=== PATIENT | female | born 1945 | race Caucasian/White ===

== ENCOUNTER → 2017-02-15 | Outpatient (CLI) | payer OTHER, MEDICARE | LOC: BHFA 13:15 | PROVIDERS: ATTEND Internal Medicine Interventional Cardiology | DX: I25.10 Atherosclerotic heart disease of native coronary artery without angina pectoris (principal); I10 Essential (primary) hypertension ==

== ENCOUNTER 2017-07-07 14:49 | Emergency (ER) | payer OTHER, MEDICARE ==
[2017-07-07 14:58] VITALS: RESP 18; O2SAT 92
--- NOTE | 2017-07-07 15:41 | EDPHY ---
HPI/HX/ROS/PE/MDM Narrative: CHIEF COMPLAINT: abdominal pain HISTORY OF PRESENT ILLNESS: This patient is a 71 year old female complaining of abdominal pain onset around one month ago. For the first two weeks this was intermittent, but has been constant for the last two weeks. She takes medicine for GERD, and her pain does not feel similar to this. Her current discomfort is primarily in her lower abdomen. She has been vomiting after solid food intake, but has been able to keep down liquids. She cannot identify any provocation other than food. Her daughter at bedside notes she was dizzy and pale following walking on the treadmill this morning. She visited her primary care physician today, who recommended she present to the emergency department for further evaluation. She has had problems with constipation and diarrhea in the past. No fever, chills, chest pain, shortness of breath, palpitations, diarrhea, urinary complaints, headache, lightheadedness. REVIEW OF SYSTEMS: Aside from elements discussed in the HPI, a comprehensive 10-point review of systems was reviewed and is negative. PAST MEDICAL HISTORY: 1. Open heart surgery. 2. GERD. 3. Diabetes. 4. Hypertension. 5. Anxiety 6. Cholecystectomy 7. Appendectomy SOCIAL HISTORY: Daughter at bedside. Lives in [place]. PCP. Dr. Martinez. VITAL SIGNS: Reviewed by me GENERAL: Well-developed, well-nourished, resting comfortably in no respiratory distress. HEENT: Atraumatic. Eyes: No icterus, no injection. Mouth: moist mucous membranes. No erythema or lesions. Neck: supple with no adenopathy. LUNGS: Clear to auscultation bilaterally, no wheezes, rhonchi or rales. CARDIAC: Regular rate and rhythm, no rubs, murmurs or gallops. ABDOMEN: Generalized abdominal tenderness, worse in the lower quadrants. Distended. No guarding or rebound. Soft, bowel sounds normal. BACK: No CVA tenderness. EXTREMITIES: No trauma. No edema. Range of motion is normal throughout. NEURO: Alert and oriented, grossly nonfocal. SKIN: Warm and dry, no rash. PSYCHIATRIC: Normal mentation, no agitation. Portions of this note were transcribed by a medical records analyst. I personally performed a history, physical exam, medical decision making, and confirmed accuracy of information the transcribed note. ED Course: 71 year old female presents with 1 month history of worsening abdominal pain, constant over the last two weeks with associated vomiting. IV established. Labs including CBC, BMP, liver, lipase, UA. Plan for CT abdomen/pelvis. Administered 0.5mg IV Dilaudid and 1L IV NS for symptom relief. 17:[address] Simeon, radiologist. CT negative for acute processes. 18:17 Reassessed patient. She now tells me that she has had multiple episodes of diarrhea over the last week. Plan to order stool kit which she can complete at home. Plan to discharge home in good condition with prescription for Bentyl and Zofran for symptom relief. She understands she needs to follow up with her primary care physician tomorrow or Tuesday without fail. Return precautions discussed. She is comfortable with this plan. MDM: After obtaining the patient's history and performing an examination, differential diagnosis considered included but was not limited to appendicitis, cholecystitis, gastritis, pancreatitis, kidney stones, urinary tract infections and other causes. - Data Points Imaging Results: Impression: 1. No acute findings in the abdomen or pelvis. 2. Stable splenomegaly. 3. Minimal progression of interstitial lung disease which could represent NSIP or UIP. 4. Mild colonic diverticulosis without evidence of diverticulitis. 5. Additional findings as above. Findings discussed with Cynthia Guallpa MD, 07/07/2017 at 17:34. Dictated By: Memo Simeon MD Imaging: Discussed imaging studies w/ faculty i on call medical assistant Radiologist Laboratory Results: Laboratory Results 07/07/17 15:20 07/07/17 15:20 Medications Given: Discontinued Medications Hydrocodone Bitart/Acetaminophen ([place] 5/325mg Prepack#6) 1 btl TAKEHOME EDNOW ONE Stop: 07/07/17 18:19 Last Admin: 07/07/17 18:41 Dose: 1 btl Dicyclomine HCl (Bentyl) 20 mg PO EDNOW ONE Stop: 07/07/17 17:49 Last Admin: 07/07/17 18:09 Dose: 20 mg Hydromorphone HCl (Dilaudid) 0.5 mg IVP EDNOW ONE Stop: 07/07/17 15:59 Last Admin: 07/07/17 16:05 Dose: 0.5 mg Sodium Chloride (Ns) 1,000 mls @ 0 mls/hr IV EDNOW ONE; Wide Open PRN Reason: Protocol Stop: 07/07/17 15:59 Last Admin: 07/07/17 16:05 Dose: 1,000 mls General Time Seen by Provider: 07/07/17 15:35 Initial Vital Signs: Initial Vital Signs Temperature (C) 36.5 C 07/07/17 14:50 Heart Rate 77 07/07/17 14:50 Respiratory Rate 18 07/07/17 14:50 Blood Pressure 147/60 H 07/07/17 14:50 O2 Sat (%) 92 07/07/17 14:50 O2 Delivery Mode Room Air Allergies/Adverse Reactions: No Known Allergies Allergy (Verified 07/07/17 14:58) Home Medications: Medication Instructions Recorded Clopidogrel Bisulfate [Plavix (*)] 75 mg PO DAILY 07/19/15 LORazepam [Ativan (*)] 1 mg PO HS 07/19/15 Levothyroxine [Synthroid 100 mcg 100 mcg PO HS 07/19/15 (*)] metFORMIN HCL [Glucophage 500 mg 500 mg PO BID 07/19/15 (*)] Ergocalciferol (Vitamin D2) 50,000 unit PO SUWE@04/05/16 [Vitamin D2] Glimepiride 4 mg PO BID@08,13 04/05/16 Insulin Glargine [Lantus 100 25 unit SC BID 04/05/16 UNITS/ML (*)] Losartan Potassium [Cozaar 50 mg 50 mg PO DAILY 04/05/16 (*)] Metoprolol Tartrate 25 mg PO BID 04/05/16 HYDROmorphone HCL [Dilaudid 2 mg 2 - 4 mg PO Q4 PRN #30 tab 04/06/16 (*)] Ondansetron Odt [Zofran Odt 4 mg 4 mg PO Q6 PRN #8 tab 07/07/17 (*)] Aspirin EC [Aspirin EC 81 mg (*)] 81 mg PO HS 07/14/17 FLUoxetine HCL [Fluoxetine HCl] 40 mg PO DAILY 07/14/17 Amitriptyline HCl [Elavil 10 mg 10 mg PO HS #30 tab 07/15/17 (*)] Bismuth Subsalicylate 262 mg PO QID PRN tab.chew 07/15/17 [Pepto-Bismol (*)] Hyoscyamine Sulfate [Levsin, 0.125 mg PO Q8 PRN #60 tab 07/15/17 Hyomax-Sl 0.125 mg (*)] Pantoprazole Sodium [Protonix 40mg 40 mg PO DAILY #30 tab 07/15/17 (*)] Departure - Departure Disposition: Home, Routine, Self-Care Clinical Impression: Nausea Abdominal pain Qualifiers: Abdominal location: lower abdomen, unspecified Qualified Code(s): R10.30 - Lower abdominal pain, unspecified Condition: Good Instructions: Dicyclomine (By mouth), Abdominal Pain (ED) Additional Instructions: There is no sign of obstruction, diverticulitis, or significant bowel infection on your CT scan. If you have ongoing diarrhea, you may provide a stool sample to Dr. Martinez's office or bring it to the lab at the hospital. There are orders for stool studies in the computer. Please take Zofran as needed for ongoing nausea. Please begin taking Bentyl on a regular basis for abdominal discomfort. For your abdominal pain, I suggested you start with a bland diet and advance as tolerated. This means start with clear liquids such as water, Gatorade, juice, flat non- caffeinated soda. If you tolerate clear liquids, then you may add bland foods such as bananas, rice, or toast. If you do not have any worsening of your symptoms, you may begin to resume a regular diet. Follow up with Dr. Martinez on Tuesday or Tuesday without fail. For severe abdominal pain, please take hydrocodone. For [id number] pain, please use Tylenol 650-1000 mg every 6 hours. Referrals: Nicolas Martinez MD [Primary Care Provider] - As per Instructions Prescriptions: Ondansetron Odt [Zofran Odt 4 mg (*)] 4 mg PO Q6 PRN #8 tab PRN Reason: Nausea Report Scribed for: Cynthia Guallpa Report Scribed by: Janet Uribe Date of Report: 07/07/17 Time of Report: 16:45
[2017-07-07 15:47] LABS: % IMMATURE GRANULYOCYTES 0.2 % (0.0-1.1); ABSOLUTE IMMATURE GRANULOCYTES 0.01 10^3/uL (0.00-0.10); ADD DIFF? NO; ADD MORPH? NO; ADD SCAN? NO; ATYPICAL LYMPHOCYTE FLAG 0 (0-99); FRAGMENT RBC FLAG 30 (0-99); HEMOGLOBIN 12.9 g/dL (12.6-16.3); LEFT SHIFT FLG 0 (0-99); LIPEMIA HEMOLYSIS FLAG 80 (0-99); MEAN CELL HEMOGLOBIN 28.2 pg (27.9-34.1); MEAN CELL HEMOGLOBIN CONCENTR. 33.1 g/dL (32.4-36.7); MEAN CELL VOLUME 85.3 fL (81.5-99.8); MEAN PLATELET VOLUME 11.1 fL (8.7-11.7); PLATELET CLUMPS FLAG 20 (0-99); PLATELET COUNT 108 10^3/uL (150-400); RED BLOOD CELL COUNT 4.57 10^6/uL (4.18-5.33); RED CELL DISTRIBUTION WIDTH 15.9 % (11.5-15.2)
[2017-07-07 15:58] LABS: POTASSIUM 4.9 mEq/L (3.5-5.2)
[2017-07-07] MEDS ORDERED: NS 1,000 ML IV ONE (15:58)
[2017-07-07] MEDS ORDERED: HYDROmorphONE/DILAUDID 1 MG/ML INJ IVP ONE (15:58)
[2017-07-07 15:59] LABS: ANION GAP 18 mEq/L (8-16); CALCIUM 9.4 mg/dL (8.5-10.4); CARBON DIOXIDE 19 mEq/l (22-31); CHLORIDE 103 mEq/L (97-110); CREATININE 0.9 mg/dL (0.6-1.0); GLOMERULAR FILTRATION RATE > 60; GLUCOSE 146 mg/dL (70-100); SODIUM 140 mEq/L (134-144)
[2017-07-07 16:38] LABS: ALBUMIN 4.1 g/dL (3.5-5.0); BILIRUBIN,TOTAL 0.6 mg/dL (0.1-1.4); BILIRUBIN-CONJUGATED 0.2 mg/dL (0.0-0.5); BILIRUBIN-UNCONJUGATED 0.4 mg/dL (0.0-1.1); TOTAL PROTEIN 7.6 g/dL (6.3-8.2)
[2017-07-07] MEDS ORDERED: IOPAMIDOL (ISOVUE-300) 100 ML BTL ONE (16:44)
[2017-07-07 16:55] LABS: COLOR YELLOW; LEUKOCYTE ESTERASE,URINE TRACE (NEGATIVE); MUCUS TRACE /lpf (NONE-1+); NITRITE,URINE NEGATIVE (NEGATIVE); RBC,URINE 15-25 /hpf (0-3)
[2017-07-07] MEDS ORDERED: DICYCLOMINE 10 MG CAP PO ONE (17:48)
[2017-07-07] MEDS ORDERED: HYDROCOD/APAP 5/325 PREPACK#6 BTL TAKEHOME ONE (18:18)
[2017-07-07 18:43] VITALS: BP 153/81; PULSE 78; TEMP 98.1
== END 2017-07-07 18:30 | disposition home or self-care (01) ==
DX: R10.30 Lower abdominal pain, unspecified (principal); R11.0 Nausea; E11.9 Type 2 diabetes mellitus without complications; I10 Essential (primary) hypertension; E86.9 Volume depletion, unspecified; Z79.4 Long term (current) use of insulin; Z79.82 Long term (current) use of aspirin; Z79.84 Long term (current) use of oral hypoglycemic drugs; Z90.49 Acquired absence of other specified parts of digestive tract
CPT/HCPCS: 74177; 96361; 96374; 99285; J1170; Q9967

== ENCOUNTER 2017-07-14 13:42 | Observation (INO) | payer OTHER, MEDICARE ==
--- NOTE | 2017-07-14 16:02 | EDPHY ---
H & P Stated Complaint: Continued lower abdo pain, N/V/D, seen here . Time Seen by Provider: 07/14/17 15:43 HPI/ROS: CHIEF COMPLAINT: Lower abdominal pain HISTORY OF PRESENT ILLNESS: The patient is a 71 y/o female with a history of diabetes arriving with her family returning to the ED with lower abdominal pain that began three weeks ago. Her pain was initially intermittent, but became constant last week. She was evaluated here one week ago for the same pain and had a normal CT at that time. She describes her pain as throbbing pain that is aggravated by eating. She has been vomiting every time she eats or drinks, but also feels bloated. She describes alternating constipation and diarrhea and feels shaky when she walks. No fever, dysuria, hematuria. She has had this pain in past, but is unable to tell me more about those instances. REVIEW OF SYSTEMS: Constitutional: No fever, no chills Eyes: No visual changes ENT: No sore throat Respiratory: No cough, no shortness of breath Cardiac: No chest pain Gastrointestinal: +nausea, +vomiting, +abdominal pain Genitourinary: No hematuria, no dysuria Musculoskeletal: No leg pain or swelling Skin: No rash Neurological: No headache, no numbness, no weakness Psychiatric: No depression - Personal History Current Tetanus Diphtheria and Acellular Pertussis (TDAP): Yes Tetanus Vaccine Date: 2006 - Medical/Surgical History PMH: PMH includes: 1. Diabetes 2. GERD 3. CABG x3 4. Hypertension 5. Diverticulosis without diverticulitis 6. Cholecystectomy and appendectomy 7. Anxiety Prior medical records reviewed including ED visit 07/07/17 for abdominal pain. Hx Asthma: Yes Hx Chronic Respiratory Disease: No Hx Diabetes: Yes Hx Cardiac Disease: Yes Hx Renal Disease: No Hx Cirrhosis: No Hx Alcoholism: No Hx HIV/AIDS: No Hx Splenectomy or Spleen Trauma: No Other PMH: chronic pain. Heart surgery 2012. Appendectomy. Cholecystectomy. DM2. Asthma - Social History Smoking Status: Never smoked Additional Social History: Family at bedside. Nonsmoker. Lives in [place]. PCP: Dr. Martinez - Physical Exam Exam: General Appearance: Alert, pleasant Eyes: Pupils equal and round, no conjunctival pallor or injection ENT, Mouth: Mucous membranes dry Neck: Normal inspection Respiratory: Lungs are clear to auscultation Cardiovascular: Regular rate and rhythm Gastrointestinal: Abdomen is soft with epigastric tenderness Neurological: A&O, nonfocal, normal gait Skin: Warm and dry, no rash Extremities: Nontender, no pedal edema Psychiatric: Mood and affect normal Constitutional: Initial Vital Signs Temperature (C) 36.3 C 07/14/17 13:43 Heart Rate 71 07/14/17 13:43 Respiratory Rate 16 07/14/17 13:43 Blood Pressure 158/65 H 07/14/17 13:43 O2 Sat (%) 91 L 07/14/17 13:43 O2 Delivery Mode Room Air Allergies/Adverse Reactions: No Known Allergies Allergy (Verified 07/07/17 14:58) Home Medications: Medication Instructions Recorded Clopidogrel Bisulfate [Plavix (*)] 75 mg PO DAILY 07/19/15 Esomeprazole Magnesium [Nexium] 20 mg PO HS 07/19/15 LORazepam [Ativan (*)] 1 mg PO HS 07/19/15 Levothyroxine [Synthroid 100 mcg 100 mcg PO HS 07/19/15 (*)] metFORMIN HCL [Glucophage 500 mg 500 mg PO BID 07/19/15 (*)] Ergocalciferol (Vitamin D2) 50,000 unit PO SUWE@04/05/16 [Vitamin D2] Glimepiride 4 mg PO BID@04/05/16 Insulin Glargine [Lantus 100 25 unit SC BID 04/05/16 UNITS/ML (*)] Losartan Potassium [Cozaar 50 mg 50 mg PO DAILY 04/05/16 (*)] Metoprolol Tartrate 25 mg PO BID 04/05/16 HYDROmorphone HCL [Dilaudid 2 mg 2 - 4 mg PO Q4 PRN #30 tab 04/06/16 (*)] Ondansetron Odt [Zofran Odt 4 mg 4 mg PO Q6 PRN #8 tab 07/07/17 (RX)] Aspirin EC [Aspirin EC 81 mg (*)] 81 mg PO HS 07/14/17 FLUoxetine HCL [Fluoxetine HCl] 40 mg PO DAILY 07/14/17 Medical Decision Making ED Course/Re-evaluation: This is a 71 y/o female who returns with a few-week history of worsening abdominal pain. She has been unable to keep down food or fluids due to vomiting. She has epigastric tenderness and appears dehydrated on exam. Her CT last week did not reveal an obvious cause for her symptoms. We discussed utility of repeating imaging today and will not proceed with another CT at this time as she likely needs and endoscopy to better evaluate her pain. Concern for gastric outlet obstruction vs gastroparesis. I recommended admission for both pain control and rehydration, which she agrees to. Plan for IV, labs, and symptom management here in the ED. 1L IV NS, 4mg IV Zofran, and 40mg IV Protonix administered. Exam remains unchanged throughout. Hospitalist service was consulted for admission. Morphine IV given for pain control. Differential Diagnosis: Differential diagnosis includes though it is not limited to appendicitis, cholecystitis, diverticulitis, pyelonephritis, bowel perforation, small bowel obstruction. - Data Points Laboratory Results: Laboratory Results 07/14/17 16:15 07/14/17 16:15 07/14/17 07/14/17 07/14/17 17:10 16:15 16:15 WBC 4.31 10^3/uL 10^3/uL (3.80-9.50) RBC 4.71 10^6/uL 10^6/uL (4.18-5.33) Hgb 13.4 g/dL g/dL (12.6-16.3) Hct 39.9 % % (38.0-47.0) MCV 84.7 fL fL (81.5-99.8) MCH 28.5 pg pg (27.9-34.1) MCHC 33.6 g/dL g/dL (32.4-36.7) RDW 16.0 % H % (11.5-15.2) Plt Count 116 10^3/uL L 10^3/uL (150-400) MPV 11.2 fL fL (8.7-11.7) Neut % (Auto) 70.1 % % (39.3-74.2) Lymph % (Auto) 19.5 % % (15.0-45.0) Morgan % (Auto) 8.1 % % (4.5-13.0) Eos % (Auto) 1.6 % % (0.6-7.6) Baso % (Auto) 0.5 % % (0.3-1.7) Nucleat RBC Rel Count 0.0 % % (0.0-0.2) Absolute Neuts (auto) 3.02 10^3/uL 10^3/uL (1.70-6.50) Absolute Lymphs (auto) 0.84 10^3/uL L 10^3/uL (1.00-3.00) Absolute Monos (auto) 0.35 10^3/uL 10^3/uL (0.30-0.80) Absolute Eos (auto) 0.07 10^3/uL 10^3/uL (0.03-0.40) Absolute Basos (auto) 0.02 10^3/uL 10^3/uL (0.02-0.10) Absolute Nucleated RBC 0.00 10^3/uL 10^3/uL (0-0.01) Immature Gran % 0.2 % % (0.0-1.1) Immature Gran # 0.01 10^3/uL 10^3/uL (0.00-0.10) Sodium 139 mEq/L mEq/L (134-144) Potassium 4.5 mEq/L mEq/L (3.5-5.2) Chloride 101 mEq/L mEq/L (97-110) Carbon Dioxide 22 mEq/l mEq/l (22-31) Anion Gap 16 mEq/L mEq/L (8-16) BUN 16 mg/dL mg/dL (7-23) Creatinine 0.7 mg/dL mg/dL (0.6-1.0) Estimated GFR > 60 Glucose 189 mg/dL H mg/dL (70-100) Calcium 9.8 mg/dL mg/dL (8.5-10.4) Total Bilirubin 0.4 mg/dL mg/dL (0.1-1.4) Conjugated Bilirubin 0.1 mg/dL mg/dL (0.0-0.5) Unconjugated Bilirubin 0.3 mg/dL mg/dL (0.0-1.1) AST 57 IU/L H IU/L (14-46) ALT 66 IU/L H IU/L (9-52) Alkaline Phosphatase 71 IU/L IU/L (38-126) Total Protein 7.6 g/dL g/dL (6.3-8.2) Albumin 4.4 g/dL g/dL (3.5-5.0) Lipase 60 IU/L IU/L (23-300) Urine Color YELLOW Urine Appearance CLEAR Urine pH 5.0 (5.0-7.5) Ur Specific Wright 1.015 (1.002-1.030) Urine Protein NEGATIVE (NEGATIVE) Urine Ketones NEGATIVE (NEGATIVE) Urine Blood NEGATIVE (NEGATIVE) Urine Nitrate NEGATIVE (NEGATIVE) Urine Bilirubin NEGATIVE (NEGATIVE) Urine Urobilinogen NEGATIVE EU EU (0.2-1.0) Ur Leukocyte Esterase NEGATIVE (NEGATIVE) Urine RBC 5-10 /hpf H /hpf (0-3) Urine WBC 1-3 /hpf /hpf (0-3) Ur Epithelial Cells TRACE /lpf /lpf (NONE-1+) Urine Bacteria 4+ /hpf H /hpf (NONE SEEN) Hyaline Casts 1-5 /lpf /lpf (0-1) Urine Mucus TRACE /lpf /lpf (NONE-1+) Urine Glucose 1+ H (NEGATIVE) Medications Given: Aspirin Buffered (Aspirin Ec) 81 mg PO HS [facility] Stop: 01/10/18 20:59 Last Admin: 07/14/17 21:34 Dose: 81 mg Hydromorphone/Sodium Chloride (Hydromorphone) 0.2 - 0.4 mg IVP Q4HRS PRN PRN Reason: Pain, Severe Unable to Take PO Stop: 07/24/17 18:35 Last Admin: 07/14/17 18:56 Dose: 0.4 mg Sodium Chloride (Ns) 1,000 mls @ 75 mls/hr IV CONT ADALGISA Stop: 01/10/18 17:44 Last Admin: 07/14/17 18:41 Dose: 1,000 mls Insulin Glargine (Lantus Syringe) 12.5 units SC BID ADALGISA Stop: 01/10/18 20:59 Last Admin: 07/14/17 21:57 Dose: 12.5 units Levothyroxine Sodium (Synthroid) 100 mcg PO HS ADALGISA Stop: 01/10/18 20:59 Last Admin: 07/14/17 21:31 Dose: 100 mcg Lorazepam (Ativan) 1 mg PO HS ADALGISA Stop: 01/10/18 20:59 Last Admin: 07/14/17 21:31 Dose: 1 mg Metoprolol Tartrate (Lopressor) 25 mg PO BID ADALGISA Stop: 01/10/18 20:59 Last Admin: 07/14/17 21:40 Dose: 25 mg Pantoprazole Sodium (Protonix) 40 mg IVP BID ADALGISA Stop: 01/10/18 20:59 Last Admin: 07/14/17 21:31 Dose: 40 mg Discontinued Medications Sodium Chloride (Ns) 1,000 mls @ 0 mls/hr IV EDNOW ONE; Wide Open PRN Reason: Protocol Stop: 07/14/17 16:05 Last Admin: 07/14/17 16:17 Dose: 1,000 mls Ondansetron HCl (Zofran) 4 mg IVP EDNOW ONE Stop: 07/14/17 16:05 Last Admin: 07/14/17 16:17 Dose: 4 mg Pantoprazole Sodium (Protonix) 40 mg IVP EDNOW ONE Stop: 07/14/17 16:06 Last Admin: 07/14/17 16:18 Dose: 40 mg Departure - Departure Disposition: [facility] Inpatient Acute Clinical Impression: Dehydration, Intractable abdominal pain Condition: Fair Report Scribed for: Ronda Johnson Report Scribed by: Isela Bray Date of Report: 07/14/17 Time of Report: 16:02 Physician Review and Approval Statement: 07/14/17 16:02 Portions of this note were transcribed by a director of graduate medical education. I personally performed a history, physical exam, medical decision making, and confirmed accuracy of information the transcribed note.
[2017-07-14] MEDS ORDERED: ONDANSETRON 4 MG/2 ML VIAL IVP ONE (16:04)
[2017-07-14] MEDS ORDERED: NS 1,000 ML IV ONE (16:04)
[2017-07-14] MEDS ORDERED: PANTOPRAZOLE SODIUM 40 MG VIAL IVP ONE (16:05)
[2017-07-14 16:36] LABS: % IMMATURE GRANULYOCYTES 0.2 % (0.0-1.1); ABSOLUTE IMMATURE GRANULOCYTES 0.01 10^3/uL (0.00-0.10); ADD DIFF? NO; ADD MORPH? NO; ADD SCAN? NO; ATYPICAL LYMPHOCYTE FLAG 0 (0-99); FRAGMENT RBC FLAG 0 (0-99); HEMATOCRIT 39.9 % (38.0-47.0); HEMOGLOBIN 13.4 g/dL (12.6-16.3); LEFT SHIFT FLG 0 (0-99); LIPEMIA HEMOLYSIS FLAG 80 (0-99); MEAN CELL HEMOGLOBIN 28.5 pg (27.9-34.1); MEAN CELL HEMOGLOBIN CONCENTR. 33.6 g/dL (32.4-36.7); MEAN CELL VOLUME 84.7 fL (81.5-99.8); MEAN PLATELET VOLUME 11.2 fL (8.7-11.7); PLATELET CLUMPS FLAG 0 (0-99); PLATELET COUNT 116 10^3/uL (150-400); RED BLOOD CELL COUNT 4.71 10^6/uL (4.18-5.33)
[2017-07-14 16:51] LABS: ALANINE AMINOTRANSFERASE 66 IU/L (9-52); ALBUMIN 4.4 g/dL (3.5-5.0); ALKALINE PHOSPHATASE 71 IU/L (38-126); ANION GAP 16 mEq/L (8-16); ASPARTATE AMINOTRANSFERASE 57 IU/L (14-46); BILIRUBIN,TOTAL 0.4 mg/dL (0.1-1.4); BILIRUBIN-CONJUGATED 0.1 mg/dL (0.0-0.5); BILIRUBIN-UNCONJUGATED 0.3 mg/dL (0.0-1.1); CALCIUM 9.8 mg/dL (8.5-10.4); CARBON DIOXIDE 22 mEq/l (22-31); CHLORIDE 101 mEq/L (97-110); CREATININE 0.7 mg/dL (0.6-1.0); GLOMERULAR FILTRATION RATE > 60; GLUCOSE 189 mg/dL (70-100); POTASSIUM 4.5 mEq/L (3.5-5.2); SODIUM 139 mEq/L (134-144); TOTAL PROTEIN 7.6 g/dL (6.3-8.2)
[2017-07-14] MEDS ORDERED: ACETAMINOPHEN 325 MG TAB PO PRN (17:39)
[2017-07-14] MEDS ORDERED: ONDANSETRON DISINTEGRATING 4 MG TAB PO PRN (17:39)
[2017-07-14] MEDS ORDERED: ONDANSETRON 4 MG/2 ML VIAL IVP PRN (17:39)
[2017-07-14] MEDS ORDERED: NS 1,000 ML IV SCH (17:45)
[2017-07-14] MEDS ORDERED: D50W 25 GM/50 ML SYR IVP PRN (18:09)
[2017-07-14 18:11] LABS: COLOR YELLOW; LEUKOCYTE ESTERASE,URINE NEGATIVE (NEGATIVE); NITRITE,URINE NEGATIVE (NEGATIVE)
[2017-07-14 18:13] LABS: BACTERIA 4+ /hpf (NONE SEEN); MUCUS TRACE /lpf (NONE-1+)
[2017-07-14] MEDS ORDERED: oxyCODONE IR 5 MG TAB PO PRN (18:25)
[2017-07-14] MEDS: HYDROmorphone HCL/NS/PF 0.4 MG/2 ML SYR IVP PRN (18:56)
--- NOTE | 2017-07-14 20:58 | GHP ---
[f rep st] HISTORY AND PHYSICAL DATE OF ADMISSION: 07/14/2017 CHIEF COMPLAINT: Abdominal pain. HISTORY OF PRESENT ILLNESS: This is a 71-year-old female history of diabetes as well as coronary art jone disease, who presents with 3 weeks of abdominal pain. She describes this as a lower abdominal cr ampy-type pain. She has been having intermittent constipation as well as diarrhea during this. She does not feel significantly constipated. Pain is worse with food. She has vomited almost every emmanuel d food that she has eaten in the past 3 weeks. She is able to keep down small amounts of fluids. Arnold florian feels as though the pain does become worse almost immediately after she eats and then she vomits wi thin 10 minutes or so. She has had a cholecystectomy. She also feels as though she is bloated. She may have lost a little bit of weight. She has been diagnosed and treated for H. pylori induced ulce rs in the past. She believes that this was diagnosed with an endoscopy. She has not had one recentl y, however. She was in the emergency department one week ago for the same complaints. At that time, labs were drawn which were relatively unremarkable. She had an abdominal CT scan which showed nothi ng to explain her abdominal pain. PAST MEDICAL/SURGICAL HISTORY: 1. Coronary artery disease, status post CABG. 2. Diabetes mellitus type 2. 3. Cholecystectomy. 4. Obesity. 5. Hypertension. 6. Hyperlipidemia. 7. Hypothyroid. 8. Depression. 9. GIORGIO, on CPAP. MEDICATIONS: Please see medication reconciliation. ALLERGIES: NO KNOWN DRUG ALLERGIES. FAMILY HISTORY: Family history is reviewed and noncontributory. SOCIAL HISTORY: She is accompanied by her daughter. She has another daughter who would be her MD PO A. REVIEW OF SYSTEMS: A 10-point review of systems was conducted and was negative except for HPI. PHYSICAL EXAMINATION: VITAL SIGNS: Blood pressure 147/58, heart rate 64, respiratory rate 16, satur ating at 93% on room air, temperature 36.3. GENERAL: Ms. Butler is a very pleasant female who appe ars quite comfortable, in no acute distress. HEENT: Shows her to be normocephalic, atraumatic. CAR DIOVASCULAR: Regular rate and rhythm. There is a 1/6 faint systolic murmur. PULMONARY: Lungs jacques r bilaterally. ABDOMEN: Her abdomen is soft. She has normal bowel sounds. She has no guarding or rebound. She has diffuse tenderness to palpation. I do not appreciate any masses. SKIN: No rash. : No [place]. NEUROLOGIC: She is alert and oriented x3. She is moving all extremities. PSYCHIAT [place]: Normal mood and affect. LABORATORY DATA: Notable for platelets of 116, which is chronic. Her creatinine is 0.7. AST and AL T are chronically elevated in the 50s and 60s. Urinalysis from a week ago showed 3 to 5 whites. Uri ne culture from that time showed low colony counts of nonlactose fermenting gram angelica as well as Staph ylococcus aureus. These are likely contaminants. DATA: 1. I discussed with Dr. Johnson. 2. I reviewed her abdominal CT, most notable for minimal progression of interstitial lung disease. There were no acute abdominal findings. IMPRESSION AND PLAN: A 71-year-old female with diffuse abdominal pain. 1. Postprandial abdominal pain: Most likely represents intraluminal stomach process, consider gastr itis, other stomach ulcer, possible gastric outlet obstruction. Also consider diabetic gastroparesis . I think it is reasonable to treat her tonight with high-dose intravenous Protonix and follow her c linical course. I will go ahead and order an upper GI series for tomorrow to potentially show ulcers , gastric outlet obstruction. If she is better, this does really not need to be done and she could b e referred to see Gastroenterology as an outpatient. We could also consider an inpatient gastroenter ology consult for upper endoscopy. Will give her IV fluids overnight, clear liquids for now, and n.p .o. after midnight. She will be provided antiemetics as well. 2. Coronary artery disease, status post coronary artery bypass grafting: Currently not having any c hest pain. We will continue her cardiac medications. 3. Diabetes: Will hold her metformin for now. Will continue her home insulin and place her on a lo w-dose sliding scale with Lispro. 4. Hypothyroid: Synthroid. 5. Obstructive sleep apnea: If she stays for more than one night, her daughter will bring up her CP AP. 6. Code status: Full. 7. Venous thromboembolism risk is moderate. Since she is admitted at observation, will place her on SCDs. Consider pharmacologic prophylaxis if she stays. /[id number]/MODL
[2017-07-14] MEDS ORDERED: LORazepam 1 MG TAB PO SCH (21:00)
[2017-07-14] MEDS ORDERED: ASPIRIN EC 81 MG TAB PO SCH (21:00)
[2017-07-14] MEDS ORDERED: LEVOTHYROXINE 100 MCG TAB PO SCH (21:00)
[2017-07-14] MEDS: PANTOPRAZOLE SODIUM 40 MG VIAL IVP SCH (21:31)
[2017-07-14] MEDS: METOPROLOL TARTRATE 25 MG TAB PO SCH ×2 (21:33→21:40)
[2017-07-14] MEDS: INSULIN GLARGINE 100 UNITS/ML SYRINGE SC SCH (21:57)
[2017-07-15 05:17] LABS: % IMMATURE GRANULYOCYTES 0.3 % (0.0-1.1); ABSOLUTE IMMATURE GRANULOCYTES 0.01 10^3/uL (0.00-0.10); ADD DIFF? NO; ADD MORPH? NO; ADD SCAN? NO; ATYPICAL LYMPHOCYTE FLAG 0 (0-99); FRAGMENT RBC FLAG 0 (0-99); HEMOGLOBIN 11.7 g/dL (12.6-16.3); LEFT SHIFT FLG 0 (0-99); LIPEMIA HEMOLYSIS FLAG 80 (0-99); MEAN CELL HEMOGLOBIN CONCENTR. 32.5 g/dL (32.4-36.7); MEAN CELL VOLUME 86.1 fL (81.5-99.8); PLATELET CLUMPS FLAG 0 (0-99); PLATELET COUNT 91 10^3/uL (150-400); RED BLOOD CELL COUNT 4.18 10^6/uL (4.18-5.33); RED CELL DISTRIBUTION WIDTH 15.9 % (11.5-15.2)
[2017-07-15 05:38] LABS: ALANINE AMINOTRANSFERASE 60 IU/L (9-52); ALBUMIN 3.3 g/dL (3.5-5.0); ALKALINE PHOSPHATASE 56 IU/L (38-126); ANION GAP 14 mEq/L (8-16); ASPARTATE AMINOTRANSFERASE 53 IU/L (14-46); BILIRUBIN,TOTAL 0.5 mg/dL (0.1-1.4); CALCIUM 8.9 mg/dL (8.5-10.4); CARBON DIOXIDE 24 mEq/l (22-31); CHLORIDE 106 mEq/L (97-110); CREATININE 0.7 mg/dL (0.6-1.0); GLOMERULAR FILTRATION RATE > 60; GLUCOSE 78 mg/dL (70-100); SODIUM 144 mEq/L (134-144); TOTAL PROTEIN 6.6 g/dL (6.3-8.2)
[2017-07-15] MEDS: INSULIN LISPRO 100 UNIT/ML SC SCH ×3 (08:24→19:16)
[2017-07-15] MEDS: HYDROmorphone HCL/NS/PF 0.4 MG/2 ML SYR IVP PRN ×2 (08:37→13:13)
[2017-07-15] MEDS: PANTOPRAZOLE SODIUM 40 MG VIAL IVP SCH (08:38)
[2017-07-15] MEDS ORDERED: ENOXAPARIN 40 MG/0.4 ML SYR SC SCH (09:00)
[2017-07-15] MEDS ORDERED: LOSARTAN POTASSIUM 50 MG TAB PO SCH (09:00)
[2017-07-15] MEDS ORDERED: FLUoxetine 20 MG CAP PO SCH (09:00)
[2017-07-15] MEDS ORDERED: CLOPIDOGREL BISULFATE 75 MG TAB PO SCH (09:00)
[2017-07-15] MEDS: METOPROLOL TARTRATE 25 MG TAB PO SCH (10:40)
[2017-07-15] MEDS: INSULIN GLARGINE 100 UNITS/ML SYRINGE SC SCH (11:16)
--- NOTE | 2017-07-15 11:37 | ASMTCMCOM ---
CM Note CM Note Notes: Pt. is a 71-year-old woman in OBS status, admitted for lower abdominal pain and vomiting. Pt. was seen in ED approximately one week ago also for abdominal pain. Pt. reports has been having lower abdominal pain for 3 weeks. Pt. w/ hx. Type 2 diabetes, GERD, CABG, HTN, diverticulosis, gall bladder and appendix removal, hypothyroid, sleep apnea, obesity, asthma, depression and anxiety. PCP is Dr. Martinez. No PT or OT orders. Pt. got d/c order today. Bedside RN states Pt. good to go home independently with support of friends and family. Current plan: independent d/c today. Date Signed: 07/15/2017 11:37 AM Electronically Signed By:Brandy Schneider LCSW
[2017-07-15 13:29] VITALS: O2SAT 90
[2017-07-15 16:44] VITALS: BP 114/61; PULSE 65; RESP 18; TEMP 97.8
[2017-07-15] MEDS ORDERED: HYOSCYAMINE SULFATE 0.125 MG TAB PO PRN (17:17)
--- NOTE | 2017-07-15 17:17 | GDS ---
[f rep st] DISCHARGE SUMMARY DISCHARGE DIAGNOSES: 1. Abdominal pain. Unclear etiology. Suspect underlying irritable bowel syndrome, as well as mild gastritis. 2. Diabetes mellitus. 3. History of coronary artery disease. 4. Hypothyroidism. 5. Obstructive sleep apnea. CONSULTANTS: Dr. Luis E Segura. HOSPITAL COURSE: Abdominal pain: The patient presented to the hospital with recurrent abdominal isma n. She was seen in the Emergency Department earlier this month, at which time a CT of the abdomen wa s done that showed no acute findings. The patient tells me that she has been having abdominal pain f or years. She does have some diarrhea alternating with constipation. Her pain is worse after eating . On the day of discharge, her pain is somewhat better. Upper GI series was done on the morning of dis charge, which was technically limited because the patient did vomit the contrast. It did show some m ild gastritis without focal ulceration. Prior to discharge, I discussed the case with Dr. Segura, who is the patient's executive relations specialist. He plans to visit with her prior to her discharge later today. PHYSICAL EXAM: VITAL SIGNS: On day of discharge, blood pressure 136/66, pulse 62, respiratory rate 18, O2 saturation 94% on room air, temperature afebrile. ABDOMEN: Soft, nontender, nondistended. N o guarding or rebound tenderness. There is mild distention. LABORATORY DATA: Done on this hospital stay upper GI series on 07/15/2017, refer to report. DISCHARGE MEDICATIONS: Please refer to discharge medication reconciliation in [facility] for full deta ils. Below is a preliminary list. NEW MEDICATIONS: Protonix 40 mg daily. DISCHARGE INSTRUCTIONS: The patient will be discharged later today pending evaluation by GI. I disc ussed the differential diagnosis with the patient prior to discharge, including functional abdominal pain syndrome/irritable bowel syndrome versus gastritis versus possible diabetic gastroparesis. I re commended a trial of elimination diet of gluten. She could also try decreasing her dairy and increas ing her dietary fiber. She should follow up with GI as directed. /[id number]/MODL
[2017-07-15] MEDS ORDERED: BISMUTH SUBSALICYLATE 262 MG CHEWABLE TAB PO PRN (17:18)
--- NOTE | 2017-07-15 18:03 | GCON ---
[f rep st] CONSULTATION GI INPATIENT CONSULTATION DATE OF CONSULTATION: 07/15/2017 REASON FOR CONSULTATION: I was kindly requested to see this patient by Dr. Francisco Javier Galindo in consultation for a chief complaint of digestive symptoms. HISTORY OF PRESENT ILLNESS: She is a 71-year-old white female who has had a long history of the above. Dating back as far as 2006, she has had trouble with abdominal pain, nausea, bowel trouble, etc. For the last 2 weeks, she feels that it has been getting somewhat worse. She complains of bilateral lower quadrant crampy abdominal pain. She also can have nausea. Food can make these symptoms worse. She has some bloating. She can have trouble with diarrhea, with alternating constipation. Lately, she has had more trouble with diarrhea than the latter. She denies hematemesis, blood in her stool, fever. She has had an extensive, unremarkable workup. This includes an upper endoscopy in 2006 for similar symptoms, which was essentially normal. Biopsies for H pylori were positive, and she was treated for this with Prevpac. Duodenal biopsies were negative. Subsequently, she has had upper GI series, ultrasounds, CT scans, colonoscopies, blood work, etc., all relatively unremarkable. On July 07, she had a CT scan of the abdomen and pelvis with IV contrast, which was normal, except for some mild diverticulosis. On this admission, upper GI series showed no ulcer. For the above, she has tried dicyclomine, but she states it gave her the "shakes." She does have trouble with insomnia. PAST MEDICAL HISTORY: 1. As above. 2. Coronary artery disease with a relatively recent CABG. 3. Diabetes mellitus. 4. Status post cholecystectomy. 5. Obesity. 6. Hypertension. 7. Elevated lipids. 8. Thyroid disorder. 9. Depression. 10. Sleep apnea on CPAP. 11. Status post appendectomy. 12. Otherwise, noncontributory. ALLERGIES: No known drug allergies. OUTPATIENT MEDICATIONS: Prozac, Synthroid, metformin, Ativan, Nexium 20 mg daily, which she states helps with heartburn, Plavix, losartan, metoprolol, aspirin, Dilaudid as needed, Zofran as needed and Glimepiride. INPATIENT MEDICATIONS: IV fluids, Protonix 40 mg IV twice a day, aspirin, Plavix, Prozac, insulin, Ativan before bed, Cozaar, Synthroid and Lopressor. SOCIAL HISTORY: Negative for alcohol abuse. FAMILY HISTORY: Negative for similar digestive symptoms. REVIEW OF SYSTEMS: A complete positive review of systems as per my HPI. Otherwise, complete review of systems is negative. PHYSICAL EXAMINATION: CONSTITUTIONAL: Nontoxic-appearing, pleasant woman. VITAL SIGNS: Stable. SKIN: Warm, dry. HEENT: Eyes: Pupils equal, round, and reactive to light and accommodation. Ears, nose, mouth and throat: Oropharynx without masses, moist mucosa. GASTROINTESTINAL: Abdomen is profuse , nontender. NEUROLOGIC: Grossly nonfocal, cranial nerves grossly intact. PSYCHIATRIC: Orientation, insight appropriate. MUSCULOSKELETAL: Strength grossly normal throughout, normal station. LABORATORY DATA: Include the above. The upper GI was otherwise technically limited with some question of gastritis and some physiologic reflux versus vomiting seen. There was a known duodenal diverticulum seen. Hematocrit normal. Basic metabolic panel normal. Slightly elevated AST and ALT, similar to 2013, at 53 and 60. Normal lipase. Urinalysis negative. Elevated TSH in 2014, but she states that this was recently checked in her outpatient endocrine' s office and was unremarkable. ASSESSMENT: Bilateral lower quadrant crampy abdominal pain with nausea, bloating, diarrhea, and less frequent alternating constipation. This almost certainly represents her known irritable bowel syndrome. In support of this are her chronic symptoms, classic symptoms, and extensive past and present evaluation. Doubt a structural lesion of the upper GI tract, missed on today's upper GI series, or a structural colonic etiology. PLAN: 1. Elavil 10 mg at bedtime, for at least several months, to treat her irritable bowel syndrome with pain, nausea, and diarrhea. Then, she can stop this if she wants. 2. Hyoscyamine 1 tablet 3 times daily orally p.r.n. crampy abdominal pain, especially while waiting for the amitriptyline to "kick in.". 3. As an outpatient, would recommend increasing her Nexium to 40 mg daily long- term. 4. Kaopectate or Pepto-Bismol as needed for diarrhea. 5. We will check a stool for H pylori but suspect treatment done 10 years ago eradicated this. 6. I discussed with Anais and her family pursuing upper endoscopy and colonoscopy. They wish to hold off on this for now, which is certainly quite reasonable, as overall, relatively low yield. If, however, the above does not help over the next weeks to months, we could always consider this as an outpatient. I am going off service after today, so will sign off. As an outpatient, would recommend continuing the above. I would recommend follow up with her PCP, but I could certainly also follow up with her, if she wishes. Thank you for allowing me to help in the care of this patient. /[id number]/MODL MTDD
[2017-07-16] MEDS ORDERED: PANTOPRAZOLE SODIUM 40 MG TAB PO SCH (09:00)
--- NOTE | 2017-07-16 17:17 | ASDISCHSUM ---
Discharge Information Plan Status:Home with No Needs Medically Cleared to Leave: Discharge Date:07/15/2017 08:11 PM CM D/C Disposition:Home, Routine, Self-Care ADT D/C Disposition:Home, Routine, Self-Care Projected Discharge Date:07/15/2017 08:11 PM Transportation at D/C:Family Discharge Delay Reason: Follow-Up Date:07/15/2017 08:11 PM Discharge Slot: Final Diagnosis: Placement Information Patient Contact Information Contact Name:KIKE Relationship:Daughter Address: City: [facility] Phone: [facility]/Zip Code: Email: Financial Information Financial Class: Primary Plan Desc:MEDICARE OUTPATIENT Primary Plan Number:[id number] Secondary Plan Desc:[employer]/MDR SUPPLEMENT Secondary Plan Number:[id number] Assessment Information LACE LACE Length of stay for Answers: 1 day current admission Acuity / Level of Care Answers: Was the patient admitted to hospital via the emergency department? Yes: Comorbidities - select Answers: Peripheral vascular all that apply disease Emergency dept visits in Answers: 1 last 6 months Score: 6 Date Signed: 07/15/2017 11:15 AM Electronically Signed By:Brandy Schneider LCSW [facility] CM Progress Note CM Note CM Note Notes: Pt. is a 71-year-old woman in OBS status, admitted for lower abdominal pain and vomiting. Pt. was seen in ED approximately one week ago also for abdominal pain. Pt. reports has been having lower abdominal pain for 3 weeks. Pt. w/ hx. Type 2 diabetes, GERD, CABG, HTN, diverticulosis, gall bladder and appendix removal, hypothyroid, sleep apnea, obesity, asthma, depression and anxiety. PCP is Dr. Martinez. No PT or OT orders. Pt. got d/c order today. Bedside RN states Pt. good to go home independently with support of friends and family. Current plan: independent d/c today. Date Signed: 07/15/2017 11:37 AM Electronically Signed By:Brandy Schneider LCSW Intervention Information
[2017-07-17] MEDS ORDERED: ERGOCALCIFEROL 50,000 I.UNIT CAP PO SCH (09:00)
== END 2017-07-15 20:11 | disposition home or self-care (01) ==
LOC: F3E 18:22
PROVIDERS: ADMIT Student in an Organized Health Care Education/Training Program; ATTEND Family Medicine
DX: R10.32 Left lower quadrant pain (principal); R10.31 Right lower quadrant pain; I25.10 Atherosclerotic heart disease of native coronary artery without angina pectoris; E11.9 Type 2 diabetes mellitus without complications; K21.9 Gastro-esophageal reflux disease without esophagitis; I10 Essential (primary) hypertension; F41.9 Anxiety disorder, unspecified; E66.9 Obesity, unspecified; G47.33 Obstructive sleep apnea (adult) (pediatric); Z95.1 Presence of aortocoronary bypass graft; Z68.29 Body mass index [BMI] 29.0-29.9, adult
CPT/HCPCS: 74240; G0378; J1170; J1815; J2405; 96374

== ENCOUNTER 2018-02-07 15:24 | Emergency (ER) | payer OTHER, MEDICARE ==
--- NOTE | 2018-02-07 15:33 | CPEKG ---
Heart Rate: 55 RR Interval: 1091 QRSD Interval: 134 QT Interval: 428 QTC Interval: 410 QRS Leland: -41 T Wave Leland: 85 EKG Severity - ABNORMAL ECG - EKG Impression: ATRIAL FIBRILLATION EKG Impression: VENTRICULAR BIGEMINY EKG Impression: LEFT BUNDLE BRANCH BLOCK Electronically Signed By: Bob Herrera 07-Feb-2018 20:40:36
--- NOTE | 2018-02-07 15:37 | EDPHY ---
HPI/HX/ROS/PE/MDM Narrative: CHIEF COMPLAINT: Chest pain, shortness of breath HPI: The patient is a 72 y/o female with a history of a CABG with stents complaining of a dull chest pain and shortness of breath onset several days to a week ago. This pain is similar to prior episodes of chest pain. She also feels like her body feels more heavy while walking. The patient denies history of atrial fibrillation. Denies headache, numbness, paresthesias, abdominal pain, urinary or bowel complaints, fever. She denies pain with inspiration. No syncopal events. No fever or cough. REVIEW OF SYSTEMS: Aside from elements discussed in the HPI, a comprehensive 10-point review of systems was reviewed and is negative. PMH: CABG with stents (2011), diabetes, asthma, appendectomy, chronic pain SOCIAL HISTORY: Lives in [place], , retired PHYSICAL EXAM: General: Patient is alert, in no acute distress. ENT: Eyes are normal to inspection. ENT inspection normal. Neck: Normal inspection. Full range of motion. Respiratory: No respiratory distress. Breath sounds normal bilaterally. Cardiovascular: Regular rate and rhythm. Strong peripheral pulses. Normal cap refill. Abdomen: The abdomen is nontender to palpation. There are no peritoneal signs. There are normal bowel sounds. Back: Normal to inspection. No tenderness to palpation. Skin: Normal color. No rash. Warm and dry. Extremities: Normal appearance. Full range of motion. Neuro: Oriented x3. Normal motor function. Normal sensory function. ED Course: 1530: EKG was ordered and interpreted by myself as atrial fibrillation. Please see [employer] system for official reading. 1627: Repeat EKG was ordered and interpreted by myself as sinus rhythm. Please see [employer] system for official reading. 1709: Patient's glucose is 522. Chest CTA ordered and additional 1L IV NS administered. 1741: Reassessed patient, she reports that she has not taken her insulin today. I have offered her admission which she has declined. Patient is safe to go home pending normal chest CTA. Strict return precautions provided; patient is comfortable with this plan. 175: I spoke with radiologist who reports a normal chest CTA. Patient is safe to be discharged. 191: Reassessed patient, she is still refusing admission and she is now refusing insulin. MDM: This patient presents with chest pain and shortness of breath that has been present for almost a week. We performed an extensive workup including ECG, troponin and CTA-chest, all of which are normal. The patient has marked hyperglycemia without signs of anion gap acidosis, and she states this is because she forgot to take her insulin. I discussed options with her and informed her that although she does not appear to be having a heart attack, she has multiple comorbidities including CAD, prior CABG, IDDM that place her at significant risk for one. I offered admission to the hospital for further workup including repeat troponins and cardiology consultation but she declines. I also recommended we give her a dose of insulin and ensure that her BGL normalizes but she refuses this as well. In my professional opinion, the patient appears to understand the risks involved in this decisions and she seems competent to make her own decisions. We discussed strict return precautions and patient promises to return for any worsening of condition whatsoever. The etiology of her symptoms is currently unknown but I see no signs of ACS, PE, PNA, TAD, sepsis. - Data Points Imaging Results: Imaging Impressions Chest/Thorax CTA 02/07/18 17:04 Impression: 1. No evidence of pulmonary thromboembolic disease. Evidence of atherosclerotic disease coronary arteries and coronary stents. 2. Evidence of mild interstitial lung disease bilaterally, which has mildly progressed over the interval. 3. Multilevel degenerative change thoracic spine, particularly there is a prominent protrusion osteophyte complex at T6-T7. E:amm Imaging: Discussed imaging studies w/ mail caller Radiologist, I viewed and interpreted images myself Laboratory Results: Laboratory Results 02/07/18 15:34 02/07/18 15:34 02/07/18 02/07/18 02/07/18 15:38 15:34 15:34 WBC RBC Hgb Hct MCV MCH MCHC RDW Plt Count MPV Neut % (Auto) Lymph % (Auto) Ripley % (Auto) Eos % (Auto) Baso % (Auto) Nucleat RBC Rel Count Absolute Neuts (auto) Absolute Lymphs (auto) Absolute Monos (auto) Absolute Eos (auto) Absolute Basos (auto) Absolute Nucleated RBC Immature Gran % Immature Gran # PT 13.6 SEC SEC (12.0-15.0) INR 1.02 (0.83-1.16) APTT 27.9 SEC SEC (23.0-38.0) D-Dimer 0.55 ug/mLFEU H ug/mLFEU (0.00-0.50) Sodium 136 mEq/L mEq/L (135-145) Potassium 5.3 mEq/L H mEq/L (3.3-5.0) Chloride 101 mEq/L mEq/L (97-110) Carbon Dioxide 23 mEq/l mEq/l (22-31) Anion Gap 12 mEq/L mEq/L (8-16) BUN 18 mg/dL mg/dL (7-23) Creatinine 1.0 mg/dL mg/dL (0.6-1.0) Estimated GFR 55 Glucose 522 mg/dL H* mg/dL (70-100) Calcium 9.4 mg/dL mg/dL (8.5-10.4) POC Troponin I 0.00 ng/mL ng/mL (0.00-0.08) 02/07/18 15:34 WBC 3.76 10^3/uL L 10^3/uL (3.80-9.50) RBC 4.34 10^6/uL 10^6/uL (4.18-5.33) Hgb 12.2 g/dL L g/dL (12.6-16.3) Hct 37.5 % L % (38.0-47.0) MCV 86.4 fL fL (81.5-99.8) MCH 28.1 pg pg (27.9-34.1) MCHC 32.5 g/dL g/dL (32.4-36.7) RDW 15.5 % H % (11.5-15.2) Plt Count 93 10^3/uL L 10^3/uL (150-400) MPV 11.9 fL H fL (8.7-11.7) Neut % (Auto) 69.8 % % (39.3-74.2) Lymph % (Auto) 17.6 % % (15.0-45.0) Ripley % (Auto) 9.6 % % (4.5-13.0) Eos % (Auto) 1.9 % % (0.6-7.6) Baso % (Auto) 0.8 % % (0.3-1.7) Nucleat RBC Rel Count 0.0 % % (0.0-0.2) Absolute Neuts (auto) 2.63 10^3/uL 10^3/uL (1.70-6.50) Absolute Lymphs (auto) 0.66 10^3/uL L 10^3/uL (1.00-3.00) Absolute Monos (auto) 0.36 10^3/uL 10^3/uL (0.30-0.80) Absolute Eos (auto) 0.07 10^3/uL 10^3/uL (0.03-0.40) Absolute Basos (auto) 0.03 10^3/uL 10^3/uL (0.02-0.10) Absolute Nucleated RBC 0.00 10^3/uL 10^3/uL (0-0.01) Immature Gran % 0.3 % % (0.0-1.1) Immature Gran # 0.01 10^3/uL 10^3/uL (0.00-0.10) PT INR APTT D-Dimer Sodium Potassium Chloride Carbon Dioxide Anion Gap BUN Creatinine Estimated GFR Glucose Calcium POC Troponin I Medications Given: Discontinued Medications Sodium Chloride (Ns) 500 mls @ 0 mls/hr IV EDNOW ONE; Wide Open PRN Reason: Protocol Stop: 02/07/18 16:28 Last Admin: 02/07/18 16:43 Dose: 500 mls Sodium Chloride (Ns) 1,000 mls @ 0 mls/hr IV EDNOW ONE; Wide Open PRN Reason: Protocol Stop: 02/07/18 17:10 Last Admin: 02/07/18 17:19 Dose: 1,000 mls Point of Care Test Results: Chemistry 02/07/18 15:38 POC Troponin I 0.00 ng/mL ng/mL (0.00-0.08) General Time Seen by Provider: 02/07/18 15:36 Initial Vital Signs: Initial Vital Signs Temperature (C) 36.8 C 02/07/18 15:29 Heart Rate 72 02/07/18 15:29 Respiratory Rate 18 02/07/18 15:29 Blood Pressure 117/53 L 02/07/18 15:29 O2 Sat (%) 89 L 02/07/18 15:29 O2 Delivery Mode Room Air Allergies/Adverse Reactions: No Known Allergies Allergy (Verified 02/07/18 15:30) Home Medications: Medication Instructions Recorded Clopidogrel Bisulfate [Plavix (*)] 75 mg PO DAILY 07/19/15 LORazepam [Ativan (*)] 1 mg PO HS 07/19/15 Levothyroxine [Synthroid 100 mcg 100 mcg PO HS 07/19/15 (*)] metFORMIN HCL [Glucophage 500 mg 500 mg PO BID 07/19/15 (*)] Ergocalciferol (Vitamin D2) 50,000 unit PO SUWE@04/05/16 [Vitamin D2] Glimepiride 4 mg PO BID@,04/05/16 Insulin Glargine [Lantus 100 25 unit SC BID 04/05/16 UNITS/ML (*)] Losartan Potassium [Cozaar 50 mg 50 mg PO DAILY 04/05/16 (*)] Metoprolol Tartrate 25 mg PO BID 04/05/16 HYDROmorphone HCL [Dilaudid 2 mg 2 - 4 mg PO Q4 PRN #30 tab 04/06/16 (*)] Ondansetron Odt [Zofran Odt 4 mg 4 mg PO Q6 PRN #8 tab 07/07/17 (*)] Aspirin EC [Aspirin EC 81 mg (*)] 81 mg PO HS 07/14/17 FLUoxetine HCL [Fluoxetine HCl] 40 mg PO DAILY 07/14/17 Amitriptyline HCl [Elavil 10 mg 10 mg PO HS #30 tab 07/15/17 (*)] Bismuth Subsalicylate 262 mg PO QID PRN tab.chew 07/15/17 [Pepto-Bismol (*)] Hyoscyamine Sulfate [Levsin, 0.125 mg PO Q8 PRN #60 tab 07/15/17 Hyomax-Sl 0.125 mg (*)] Pantoprazole Sodium [Protonix 40mg 40 mg PO DAILY #30 tab 07/15/17 (*)] Departure - Departure Disposition: Home, Routine, Self-Care Clinical Impression: Hyperglycemia Chest pain Qualifiers: Chest pain type: other chest pain Qualified Code(s): R07.89 - Other chest pain Condition: Good Instructions: Chest Pain (ED), Diabetic Hyperglycemia (ED) Additional Instructions: Follow-up with your primary doctor within 72 hours. Return to the Emergency Department for fever, chest pain, shortness of breath, increasing pain or other worsening of condition. Follow up with a parts clerk plant maintenance for further testing, as soon as possible, within one week. As we discussed, it is impossible to fully rule out heart disease as the cause of your chest pain in the emergency department. We would be happy to reevaluate you and observe you in the hospital at any time. Referrals: Christian Perez MD [Medical Doctor] - As per Instructions Report Scribed for: Bob Herrera Report Scribed by: Elke Rush Date of Report: 02/07/18 Time of Report: 15:41 Physician Review and Approval Statement: Portions of this note were transcribed by an ED scribe. I personally performed the history, physical exam, and medical decision making; and confirm the accuracy of the information in the transcribed note.
[2018-02-07] MEDS ORDERED: NS 500 ML IV ONE (16:27)
--- NOTE | 2018-02-07 16:32 | CPEKG ---
Heart Rate: 92 RR Interval: 652 P-R Interval: 184 QRSD Interval: 126 QT Interval: 400 QTC Interval: 495 P Orlando: 59 QRS [place]: -44 T Wave [place]: 102 EKG Severity - ABNORMAL ECG - EKG Impression: SINUS RHYTHM EKG Impression: LVH WITH IVCD, LAD AND SECONDARY REPOL ABNRM Electronically Signed By: Bob Herrera 07-Feb-2018 20:40:17
[2018-02-07 16:36] LABS: PLATELET COUNT 93 10^3/uL (150-400)
[2018-02-07 16:44] LABS: INR 1.02 (0.83-1.16); PROTIME(PATIENT) 13.6 SEC (12.0-15.0)
[2018-02-07] MEDS ORDERED: NS 1,000 ML IV ONE (17:09)
[2018-02-07] MEDS ORDERED: IOPAMIDOL (ISOVUE 370) 100 ML BTL IV ONE (17:19)
[2018-02-07 19:18] VITALS: BP 163/80
== END 2018-02-07 19:18 | disposition home or self-care (01) ==
DX: R07.89 Other chest pain (principal); E11.65 Type 2 diabetes mellitus with hyperglycemia; I25.810 Atherosclerosis of coronary artery bypass graft(s) without angina pectoris; J45.909 Unspecified asthma, uncomplicated; E86.9 Volume depletion, unspecified; Z79.4 Long term (current) use of insulin; Z79.82 Long term (current) use of aspirin; Z79.84 Long term (current) use of oral hypoglycemic drugs
CPT/HCPCS: 71275; 93005; 96360; 96361; 99285; Q9967; 84484-PO

== ENCOUNTER 2018-03-13 16:44 | Inpatient (IN) | payer OTHER, MEDICARE ==
--- NOTE | 2018-03-13 17:05 | EDPHY ---
H & P Time Seen by Provider: 03/13/18 16:55 HPI/ROS: Chief complaint. Abdominal pain, urinary symptoms HPI. 72-year-old female presents emergency department several day history of abdominal pain. She has had burning with urination for 1 week. She has pain in her low abdomen. She says it"hurts". She is bloated. Nausea and vomiting but no diarrhea. No bowel movement for 2 days. She does have some discomfort in her low back. No chest discomfort however she does have shortness of breath. And cough. Fever to 100.2 degrees. Patient was seen about 2 weeks ago for chest discomfort and shortness of breath and was found to be in atrial fibrillation a glucose of 522. She tells me now her blood sugars have been running more in the 200s. ROS Constitutional. Fever and weakness Eyes. no problems with vision ENT. no sore throat, no nasal drainage Cardiovascular. no chest pain Respiratory. Short of breath and cough Abdominal. Bilateral low abdominal pain with nausea and vomiting. No bowel movement for 2 days . Painful urination MS. no calf pain/swelling, no neck/back pain, no joint pain Skin. no rash Lymph. no swollen glands Neuro. no headache, no dizziness, no difficulty walking or with speech Past Medical/Surgical History: Past medical history significant for chronic pain, coronary artery bypass graft with stents, appendectomy, cholecystectomy, diabetes, asthma Social History: , nonsmoker, no alcohol Smoking Status: Never smoked Physical Exam: General Appearance: Alert well-developed female moderate distress vital signs show heart rate 111 and O2 saturation 87% on room air Eyes: Pupils equal and round no pallor or injection. ENT, Mouth: Mucous membranes are moist. Respiratory: There are no retractions, lungs are clear to auscultation. Cardiovascular: Regular rate and rhythm. Gastrointestinal: Abdomen is soft and diffusely tender to both lower quadrants. She has bloated. Normal bowel sounds. No masses Neurological: Awake and alert, sensory and motor exams grossly normal. Skin: Warm and dry, no rashes. Musculoskeletal: Neck is supple nontender. Extremities symmetrical, full range of motion. Psychiatric: Patient is oriented X 3, there is no agitation. Constitutional: Initial Vital Signs Temperature (C) 36.5 C 03/13/18 16:49 Heart Rate 111 H 03/13/18 16:49 Respiratory Rate 16 03/13/18 16:49 Blood Pressure 136/75 H 03/13/18 16:49 O2 Sat (%) 87 L 03/13/18 16:49 O2 Delivery Mode Nasal Cannula O2 (L/minute) 2 Allergies/Adverse Reactions: No Known Allergies Allergy (Verified 03/13/18 16:49) Home Medications: Medication Instructions Recorded Clopidogrel Bisulfate [Plavix (*)] 75 mg PO DAILY 07/19/15 LORazepam [Ativan (*)] 1 mg PO HS 07/19/15 Levothyroxine [Synthroid 100 mcg 100 mcg PO HS 07/19/15 (*)] metFORMIN HCL [Glucophage 500 mg 500 mg PO BID 07/19/15 (*)] Ergocalciferol (Vitamin D2) 50,000 unit PO SUWE@04/05/16 [Vitamin D2] Glimepiride 4 mg PO BID@,04/05/16 Insulin Glargine [Lantus 100 25 unit SC BID 04/05/16 UNITS/ML (*)] Losartan Potassium [Cozaar 50 mg 50 mg PO DAILY 04/05/16 (*)] Metoprolol Tartrate 25 mg PO BID 04/05/16 HYDROmorphone HCL [Dilaudid 2 mg 2 - 4 mg PO Q4 PRN #30 tab 04/06/16 (*)] Ondansetron Odt [Zofran Odt 4 mg 4 mg PO Q6 PRN #8 tab 07/07/17 (*)] Aspirin EC [Aspirin EC 81 mg (*)] 81 mg PO HS 07/14/17 FLUoxetine HCL [Fluoxetine HCl] 40 mg PO DAILY 07/14/17 Amitriptyline HCl [Elavil 10 mg 10 mg PO HS #30 tab 07/15/17 (*)] Bismuth Subsalicylate 262 mg PO QID PRN tab.chew 07/15/17 [Pepto-Bismol (*)] Hyoscyamine Sulfate [Levsin, 0.125 mg PO Q8 PRN #60 tab 07/15/17 Hyomax-Sl 0.125 mg (*)] Pantoprazole Sodium [Protonix 40mg 40 mg PO DAILY #30 tab 07/15/17 (*)] Medical Decision Making - Diagnostics Imaging Results: Imaging Impressions Abdomen CT 03/13/18 17:17 Impression: 1. Mild interstitial fibrotic change versus dependent interstitial edema suspected at the lung bases. 2. Incidental calcified granulomas within the liver and spleen. Mild splenomegaly is stable. 3. Decompressed bladder with thickened wall. Gas bubbles also present. This could be related to recent catheterization procedure. Consider underlying cystitis. 4. Moderate spinal stenosis at L4-L5. Chest X-Ray 03/13/18 17:18 Impression: Increased interstitial markings consistent with interstitial fibrosis with no definite superimposed pneumonia identified. CT abdomen and pelvis with IV contrast shows no evidence small-bowel obstruction , appendicitis, diverticulitis Procedures: IV normal saline. Zofran for nausea. Morphine for pain. Patient is elevated lactate. Severe sepsis is declared now. Total IV saline bolus is 2400 mL. She has already received 1000 mL. She will be given subsequently 1400 mL more. IV Rocephin for UTI ED Course/Re-evaluation: Point of care troponin is negative Re-evaluation at 6:30 p.m.--patient is stable. Patient and I discussed imaging and lab results we discussed treatment plan including recommendation for admission. She expresses understanding and agreement I consulted and discussed the case with Dr. Carr, hospitalist who agrees to the admission Differential Diagnosis: I considered diverticulitis, small-bowel obstruction, appendicitis, pyelonephritis. Patient has severe sepsis with elevated lactate. It appears that the infection is urinary tract - Data Points Laboratory Results: Laboratory Results 03/13/18 17:08 03/13/18 17:08 03/13/18 03/13/18 03/13/18 17:35 17:25 17:08 WBC RBC Hgb Hct MCV MCH MCHC RDW Plt Count MPV Neut % (Auto) Lymph % (Auto) [place] % (Auto) Eos % (Auto) Baso % (Auto) Nucleat RBC Rel Count Absolute Neuts (auto) Absolute Lymphs (auto) Absolute Monos (auto) Absolute Eos (auto) Absolute Basos (auto) Absolute Nucleated RBC Immature Gran % Immature Gran # PT 14.3 SEC SEC (12.0-15.0) INR 1.09 (0.83-1.16) APTT 30.0 SEC SEC (23.0-38.0) VBG Lactic Acid 3.0 mmol/L H mmol/L (0.7-2.1) Sodium Potassium Chloride Carbon Dioxide Anion Gap BUN Creatinine Estimated GFR Glucose Calcium POC Troponin I 0.01 ng/mL ng/mL (0.00-0.08) NT-Pro-B Natriuret Pep Lipase Urine Color Urine Appearance Urine pH Ur Specific [place] Urine Protein Urine Ketones Urine Blood Urine Nitrate Urine Bilirubin Urine Urobilinogen Ur Leukocyte Esterase Urine RBC Urine WBC Ur Epithelial Cells Urine Mucus Urine Glucose 03/13/18 03/13/18 03/13/18 17:08 17:08 17:00 WBC 7.16 10^3/uL 10^3/uL (3.80-9.50) RBC 4.59 10^6/uL 10^6/uL (4.18-5.33) Hgb 12.8 g/dL g/dL (12.6-16.3) Hct 39.0 % % (38.0-47.0) MCV 85.0 fL fL (81.5-99.8) MCH 27.9 pg pg (27.9-34.1) MCHC 32.8 g/dL g/dL (32.4-36.7) RDW 15.9 % H % (11.5-15.2) Plt Count 90 10^3/uL L 10^3/uL (150-400) MPV 11.6 fL fL (8.7-11.7) Neut % (Auto) 84.2 % H % (39.3-74.2) Lymph % (Auto) 9.4 % L % (15.0-45.0) Shelby % (Auto) 5.4 % % (4.5-13.0) Eos % (Auto) 0.3 % L % (0.6-7.6) Baso % (Auto) 0.4 % % (0.3-1.7) Nucleat RBC Rel Count 0.0 % % (0.0-0.2) Absolute Neuts (auto) 6.03 10^3/uL 10^3/uL (1.70-6.50) Absolute Lymphs (auto) 0.67 10^3/uL L 10^3/uL (1.00-3.00) Absolute Monos (auto) 0.39 10^3/uL 10^3/uL (0.30-0.80) Absolute Eos (auto) 0.02 10^3/uL L 10^3/uL (0.03-0.40) Absolute Basos (auto) 0.03 10^3/uL 10^3/uL (0.02-0.10) Absolute Nucleated RBC 0.00 10^3/uL 10^3/uL (0-0.01) Immature Gran % 0.3 % % (0.0-1.1) Immature Gran # 0.02 10^3/uL 10^3/uL (0.00-0.10) PT INR APTT VBG Lactic Acid Sodium 134 mEq/L L mEq/L (135-145) Potassium 4.4 mEq/L mEq/L (3.3-5.0) Chloride 97 mEq/L mEq/L (97-110) Carbon Dioxide 22 mEq/l mEq/l (22-31) Anion Gap 15 mEq/L mEq/L (8-16) BUN 23 mg/dL mg/dL (7-23) Creatinine 1.1 mg/dL H mg/dL (0.6-1.0) Estimated GFR 49 Glucose 301 mg/dL H mg/dL (70-100) Calcium 9.4 mg/dL mg/dL (8.5-10.4) POC Troponin I NT-Pro-B Natriuret Pep 360 pg/mL H pg/mL (0-125) Lipase 43 IU/L IU/L (23-300) Urine Color SAYDA Urine Appearance MODERATELY TURBID Urine pH 5.0 (5.0-7.5) Ur Specific [place] 1.019 (1.002-1.030) Urine Protein 2+ H (NEGATIVE) Urine Ketones NEGATIVE (NEGATIVE) Urine Blood 2+ H (NEGATIVE) Urine Nitrate POSITIVE H (NEGATIVE) Urine Bilirubin NEGATIVE (NEGATIVE) Urine Urobilinogen 2.0 EU H EU (0.2-1.0) Ur Leukocyte Esterase 3+ H (NEGATIVE) Urine RBC 50-182 /hpf H /hpf (0-3) Urine WBC 50-182 /hpf H /hpf (0-3) Ur Epithelial Cells TRACE /lpf /lpf (NONE-1+) Urine Mucus TRACE /lpf /lpf (NONE-1+) Urine Glucose 1+ H (NEGATIVE) Medications Given: Discontinued Medications Sodium Chloride (Ns) 1,000 mls @ 0 mls/hr IV EDNOW ONE; Wide Open PRN Reason: Protocol Stop: 03/13/18 17:18 Last Admin: 03/13/18 17:21 Dose: 1,000 mls Ceftriaxone Sodium/Dextrose (Rocephin 1 Gm (Premix)) 50 mls @ 100 mls/hr IV EDNOW ONE PRN Reason: Protocol Stop: 03/13/18 18:26 Last Admin: 03/13/18 18:26 Dose: 50 mls Sodium Chloride (Ns) 2,400 mls @ 4,800 mls/hr 30 ml/kg infuse over 30 min ( 2400 ml) IV EDNOW ONE PRN Reason: Protocol Stop: 03/13/18 18:26 Last Admin: 03/13/18 18:18 Dose: 1,400 mls Morphine Sulfate (Morphine) 6 mg IVP EDNOW ONE Stop: 03/13/18 17:18 Last Admin: 03/13/18 17:24 Dose: 6 mg Ondansetron HCl (Zofran) 4 mg IVP EDNOW ONE Stop: 03/13/18 17:18 Last Admin: 03/13/18 17:22 Dose: 4 mg Point of Care Test Results: Chemistry 03/13/18 17:25 POC Troponin I 0.01 ng/mL ng/mL (0.00-0.08) Departure - Departure Disposition: [facility] Inpatient Acute Clinical Impression: Severe sepsis Urinary tract infection Qualifiers: Urinary tract infection type: site unspecified Hematuria presence: with hematuria Qualified Code(s): N39.0 - Urinary tract infection, site not specified ; R31.9 - Hematuria, unspecified; R31.9 - Hematuria, unspecified Condition: Fair
[2018-03-13] MEDS ORDERED: NS 1,000 ML IV ONE (17:17)
[2018-03-13] MEDS ORDERED: ONDANSETRON 4 MG/2 ML VIAL IVP ONE (17:17)
--- NOTE | 2018-03-13 17:42 | CPEKG ---
Heart Rate: 88 RR Interval: 682 P-R Interval: 148 QRSD Interval: 132 QT Interval: 400 QTC Interval: 484 P [place]: 53 QRS [place]: -48 T Wave [place]: 97 EKG Severity - ABNORMAL ECG - EKG Impression: SINUS RHYTHM EKG Impression: MULTIPLE ATRIAL PREMATURE COMPLEXES EKG Impression: LEFT BUNDLE BRANCH BLOCK Electronically Signed By: Huseyin Turcios 13-Mar-2018 18:55:06
[2018-03-13 17:44] LABS: INR 1.09 (0.83-1.16); PROTIME(PATIENT) 14.3 SEC (12.0-15.0)
[2018-03-13] MEDS ORDERED: IOPAMIDOL (ISOVUE-300) 100 ML BTL ONE (17:52)
[2018-03-13 17:53] LABS: PLATELET COUNT 90 10^3/uL (150-400)
[2018-03-13] MEDS ORDERED: NS 2,400 ML IV ONE (17:57)
[2018-03-13] MEDS ORDERED: BISMUTH SUBSALICYLATE 262 MG CHEWABLE TAB PO PRN (19:37)
[2018-03-13] MEDS ORDERED: ACETAMINOPHEN 325 MG TAB PO PRN (19:37)
[2018-03-13] MEDS ORDERED: FUROSEMIDE 20 MG/2 ML VIAL ONE (19:45)
[2018-03-13] MEDS ORDERED: ONDANSETRON 4 MG/2 ML VIAL ONE (19:47)
[2018-03-13] MEDS: ONDANSETRON 4 MG/2 ML VIAL IVP PRN (19:50)
[2018-03-13] MEDS: FUROSEMIDE 20 MG/2 ML VIAL IVP SCH (19:50)
[2018-03-13] MEDS ORDERED: PROMETHAZINE HCL 25 MG/ML INJ IVP PRN (20:18)
[2018-03-13] MEDS ORDERED: PROMETHAZINE HCL 25 MG/ML INJ ONE (20:22)
--- NOTE | 2018-03-13 20:25 | PDGENHP ---
History and Physical History and Physical: CC: Dysuria and fevers with bladder discomfort for 1 week, nausea vomiting HISTORY: This patient has developed over the past week bladder discomfort along with dysuria and frequency along with fevers. She has not sought care until today. In addition to the above the patient has had quite a bit of nausea vomiting at home and has had almost no food or fluid intake for the last few days. She does have a diagnosis of chronic nausea vomiting of uncertain etiology in the past. She has no recent urinary catheterizations, urologic procedures, hospitalizations. She feels quite weak and tired ROS: A comprehensive 10 system review revealed no other significant findings PAST MEDICAL HISTORY: -Diabetes mellitus -Interstitial lung disease, -coronary heart disease with stents in 2005 bypass in 2011, last ejection fraction measured at 55 by echo in 2012 -chronic pain syndrome -chronic nausea vomiting -asthma -obstructive sleep apnea -obesity -depression -appendectomy -Cholecystectomy FAMILY MEDICAL HISTORY: No concerning illnesses per the patient SOCIAL HISTORY: No tobacco or alcohol MEDICATIONS: The patients list has been reconciled by our clinical pharmacist in the EMR. I have reviewed the list and ordered appropriate medicines. PHYSICAL EXAMINATION: Vital Signs: Blood pressure is good, initial mild tachycardia at 110 Improved with some hydration to the low 90s; however following the IV hydration she became quite tachypneic and tachycardic with hypoxemia and rales on exam. 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 Examination: General: alert, oriented, good mentation, looks quite uncomfortable due to nausea during most of I visit with several episodes of vomiting during my visit Skin: warm, dry, good color, no rash Good capillary refill in all of her digits HEENT: normal Neck: no mass or jvd on initial exam; subsequent exam some JVD after IV fluids are given Resps: relaxed Lungs: clear breath sounds initially, however after significant IV fluid given in the ER she developed diffuse rales Cardiovascular: Very strong rapid pulse at wrist and feet regular, no murmur Abdomen: soft, nondistended, nontender, +BS, no mass Upper Extremities: normal Lower Extremities: no edema, warm No Bleeding or bruising Neurologic: normal speech/language, 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 The 1st x-ray showed some chronic interstitial lung markings that appear somewhat worse than seen on studies from 2012, with abnormalities identified as far back as 2007. No other acute abnormalities. The 2nd chest x-ray was done after she received large fluid boluses in the ER and developed significant respiratory failure with hypoxemia tachypnea tachycardia and rales on exam. This 2nd chest x-ray shows diffuse interstitial edema in the lungs without effusions. A CT of the abdomen is also done and this shows her known interstitial lung disease, some calcified granulomas in the liver and spleen, and some changes in the bladder suggesting possible cystitis 12 LEAD EKG, my interpretation of the ER tracing: Sinus tachycardia without any other acute changes noted, nothing ischemic I did review her cardiac here to in the most recent echocardiogram she has had here in the hospital or in the clinic was in 2012 when she had 55% EF and no significant valve abnormalities. ASSESSMENT: * ACUTE COMPLICATED UTI WITH FEVER * ACUTE DEHYDRATION * INTRACTABLE NAUSEA VOMITING X 5 DAYS; CHRONIC HX OF NAUSEA/EMESIS SYMPTOMS * ACUTE PULMONARY EDEMA WITH HYPOXEMIC RESPIRATORY FAILURE AFTER IV FLUID RESUSCITATION IN ER * MILD LACTIC ACIDOSIS, ? DUE TO DEHYDRATION VS EARLY SEPSIS * HX OF CAD WITH STENTS AND CABG; NO ANGINA OR SIGNS OF ISCHEMIA; MOST RECENT ECHO 2012 55% The patient comes in with obvious febrile illness that appears to be caused by urinary tract infection. She has had cultures obtained in the ER and started on antibiotics with Rocephin which seems an appropriate choice. The initial diagnosis in the ER was for sepsis with high lactate level and tachycardia. However it may well be that the tachycardia and high lactate or do as much to dehydration from her intractable nausea vomiting. Her response to IV fluids with development of pronounced pulmonary edema and some hypoxemic respiratory failure was somewhat unexpected. She does however have known coronary disease with the last echocardiogram in 2011 showing 55% ejection fraction. Would wonder if she has developed some cardiac insufficiency in that time. At this time will want to diurese her to get her breathing back in better shape will need to follow her blood pressures very closely with febrile illness and question of possible sepsis. If she has further problems may need to consider pressor support. However at this time she is feeling notably better and looking better as she had from the ER to the floor. PLANS: * Admission to PCU inpatient * Trial of diuresis to manage her pulmonary edema and hypoxemia, however may need to consider using pressors if she has decrease in blood pressure over time * Continue IV antibiotics for urinary tract infection * Aggressive antiemetic treatment * Echocardiogram, repeat troponin I have reviewed the patient's case in detail with Dr. Huseyin Turcios and Georgette Cutler I have reviewed the patient's past medical records as part of this assessment, including previous hospital admissions from this hospital including physician notes lab studies
[2018-03-13] MEDS ORDERED: ACETAMINOPHEN 500 MG TAB ONE (20:53)
[2018-03-13] MEDS ORDERED: ACETAMINOPHEN 500 MG TAB PO ONE (20:54)
[2018-03-13] MEDS ORDERED: LOSARTAN POTASSIUM 50 MG TAB PO SCH (21:00)
[2018-03-13] MEDS: ASPIRIN EC 81 MG TAB PO SCH ×2 (22:56→22:57)
[2018-03-13] MEDS: HEPARIN 5,000 UNIT/0.5 ML INJ SC SCH (22:57)
[2018-03-13] MEDS: AMITRIPTYLINE HCL 25 MG TAB PO SCH (22:57)
[2018-03-13] MEDS: LORazepam 1 MG TAB PO SCH (22:57)
[2018-03-13] MEDS: METOPROLOL TARTRATE 25 MG TAB PO SCH (22:58)
[2018-03-13] MEDS: INSULIN GLARGINE 100 UNITS/ML UNIT SC SCH (23:01)
[2018-03-14 04:02] LABS: PLATELET COUNT 75 10^3/uL (150-400)
[2018-03-14] MEDS: LEVOTHYROXINE 150 MCG TAB PO SCH (06:46)
[2018-03-14] MEDS: HEPARIN 5,000 UNIT/0.5 ML INJ SC SCH (06:47)
[2018-03-14] MEDS ORDERED: D50W 25 GM/50 ML SYR IVP PRN (07:47)
--- NOTE | 2018-03-14 08:27 | ASMTLACE ---
MAGDALENA Acuity / Level of Answers: Yes Care: Did the patient have an inpatient admission? Comorbidities - select Answers: Congestive heart failure all that apply Diabetes (uncontrolled or controlled) Opioid dependence / Chronic pain # of Emergency department Answers: 1-2 visits in the last 6 months Social determinants Answers: Mental health diagnosis (anxiety, depression, pers onality disorders, etc.) Score: 14 Date Signed: 03/14/2018 08:27 AM Electronically Signed By:Sharon Zamudio
[2018-03-14] MEDS: FUROSEMIDE 20 MG/2 ML VIAL IVP SCH (08:42)
[2018-03-14] MEDS: ATORVASTATIN CALCIUM 40 MG TAB PO SCH (08:42)
[2018-03-14] MEDS: CLOPIDOGREL BISULFATE 75 MG TAB PO SCH (08:43)
[2018-03-14] MEDS: buPROPion SR 100 MG TAB PO SCH (08:43)
[2018-03-14] MEDS: METOPROLOL TARTRATE 25 MG TAB PO SCH (08:43)
[2018-03-14] MEDS: PANTOPRAZOLE SODIUM 40 MG TAB PO SCH (08:43)
[2018-03-14] MEDS: INSULIN LISPRO 100 UNIT/ML SC SCH ×4 (08:43→20:53)
[2018-03-14] MEDS: INSULIN GLARGINE 100 UNITS/ML UNIT SC SCH ×2 (08:44→20:52)
[2018-03-14] MEDS: GLIMEPIRIDE 2 MG TAB PO SCH ×2 (08:45→13:18)
--- NOTE | 2018-03-14 09:28 | HOSPPROG ---
Hospitalist Progress Note Assessment/Plan: #Sepsis: due to E coli bacteremia. IV CTX -pressures soft this morn. Hold on further diuresis. #Hypotension: dosed albumin this morning with edema, BP improved. Echo reassuring with normal EF #RICO: dehydration with acute infection. Normal EF cardiorenal? FeUrea <35%, c/w pre-renal. Albumin #Acute hypoxic resp failure: due to pulm edema with aggressive IV resuscitation. Normal EF. Improved with Lasix x 1, but hold with hypotension & acute infection #DM2: watch sugars with RICO #CAD: h/p CABG. Trop mildly up here. c/o anginal symptoms for past month. Usually walks mile 1 mile daily, but hasn't tolerated due to "pressure and SOB" relieved with rest. Would benefit from cardiac stress once infection treated - ASA, statin #Chronic pain #Chronic thrombocytopenia: lower today with acute infection #Chronic nausea/vomiting #GIORGIO #Depression #HTN: hold BP meds with sepsis, hypotension #Hypothyroidism: LT4 #Diet: regular #DVT ppx: SCDs Disp:cont inpatient admission with sepsis. Cont IV abx, albumin Critical care time spent: 35 min, (12:30-1:10) bedside for sepsis, hypotension Subjective: feeling better today. SOB improved Objective: Vital Signs Temp Pulse Resp BP Pulse Ox 36.7 C 80 14 98/54 L 95 03/14/18 09:09 03/14/18 09:09 03/14/18 09:09 03/14/18 09:09 03/14/18 09:09 Microbiology 03/13/18 18:25 Blood Panel (PCR) - Final Blood Escherichia Coli Laboratory Results 03/14/18 03:30 03/14/18 03:30 03/13/18 03/14/18 03/15/18 05:59 05:59 05:59 Intake Total 2600 Output Total 650 Balance 1950 PT 14.3 SEC (12.0-15.0) 03/13/18 17:08 INR 1.09 (0.83-1.16) 03/13/18 17:08 - Time Spent With Patient Time Spent with Patient: greater than 35 minutes Time Spent with Patient: Greater than 35 minutes spent on this patients care, greater than 50% of time spent counseling, educating, and coordinating care regarding the above mentioned plan. - Physical Exam Constitutional: other (ill-appearing) Eyes: PERRL Ears, Nose, Mouth, Throat: dry mucous membranes Cardiovascular: regular rate and rhythym, No edema Respiratory: inspiratory crackles Gastrointestinal: normoactive bowel sounds Genitourinary: no bladder fullness, olivera in urethra Skin: warm, normal color Musculoskeletal: full muscle strength Neurologic: AAOx3, CN II-XII Intact Psychiatric: interacting appropriately, not encephalopathic ICD10 Worksheet Patient Problems: Problems Problem Status Onset Severe sepsis Acute Urinary tract infection Acute CAD - Coronary arteriosclerosis Active Diabetes mellitus type 2 Active Abdominal pain Acute Cranial nerve palsy Acute Dehydration Acute Eye pain Acute Intractable abdominal pain Acute Nausea Acute Vomiting Acute
--- NOTE | 2018-03-14 09:33 | PDMN ---
Medical Necessity Medical necessity: Pt meets IP criteria per MD & MCG M-300; est los >2 mn for eval/tx of complicated UTI w/fevers, dehydration, N/V, lactic acidosis & acute pulmonary edema w/hypoxemic respiratory failure; r/o sepsis; requiring further workup/monitoring, IV abx, diuresis, aggressive antiemetic tx & therapies; per H &P & order 03/13/18
[2018-03-14] MEDS ORDERED: ALBUMIN 25% 100 ML IV ONE (12:06)
[2018-03-14] MEDS: HYDROCODONE/APAP 5/325 TAB PO PRN (12:55)
[2018-03-14] MEDS: ONDANSETRON 4 MG/2 ML VIAL IVP PRN (12:55)
--- NOTE | 2018-03-14 15:01 | ECHO ---
[email or web address] [address] [address] Main: [phone] Fax: Transthoracic Echocardiogram Name: SIGIFREDO BONNER MR#: [id number] Study Date: 03/14/2018 Study Time: 07:39 AM Date of : 1945 Age: 72 year(s) Height: 160 cm (63 in.) Weight: 78.47 kg (173 lb.) BSA: 1.82 m2 Gender: Female Examination: Echo Indication: Acute pulmonary edema after IV fluids/hx of stents/CABG Image Quality: Contrast: Requested by: Blake Carr BP: 104 mmHg/52 mmHg Heart Rate: Rhythm: Indication: Acute pulmonary edema after IV fluids/hx of stents/CABG Procedure Staff Quarter Seamer: Lara Carlos RDCS Reading Physician: Clay Dunbar MD Requesting Provider: Conclusions: Normal size left ventricle. Normal global systolic LV function. EF is 62 %. LV septal motion is consistent with conduction abnormality. . Normal RV function. The left atrium is mildly dilated. The right atrium is normal in size. Trivial tricuspid valve regurgitation. No pericardial effusion. Measurements: Chambers Valvular Assessment AV/MV Valvular Assessment TV/PV Normal Normal Normal Name Value Range Name Value Range Name Value Range Ao Danita (MM): 3.3 cm (2.2 cm-3.7 AV Vmax: 1.16 m/s (1 m/s-1.7 cm) m/s) IVSd (2D): 0.8 cm (0.6 cm-1.1 AV meanP mmHg ( - ) cm) MV E Vmax: 0.79 m/s ( - ) LVDd (2D): 4.5 cm (3.9 cm-5.3 MV A Vmax: 0.80 m/s ( - ) cm) MV E/A: 0.99 ( - ) LVDs (2D): 3.5 cm (2.1 cm-4 cm) LVPWd (2D): 0.8 cm ( - ) LVEF (MOD4): 62 % (>=55 %) Continued Measurements: Chambers Valvular Assessment AV/MV Name Value Name Value Patient: SIGIFREDO BONNER Study Date: 03/14/2018 Page 1 of 2 07:39 AM LADs: 4.2 cm MV E' Septal: 0.04 m/s LADs Lon.4 cm MV E/E' Septal: 18.40 LA Area: 21.0 cm2 MV E/E' Lateral: 13.70 TAPSE: 1.8 cm Additional Vessels Name Value Ao Ascendin.3 cm Findings: Left Ventricle: Normal size left ventricle. No LV hypertrophy. Normal global systolic LV function. EF is 62 %. LV septal motion is consistent with conduction abnormality. . Right Ventricle: Normal size right ventricle. Normal RV function. Left Atrium: The left atrium is mildly dilated. Right Atrium: The right atrium is normal in size. Mitral Valve: The mitral valve is normal in appearance and function. Trivial mitral valve regurgitation. Aortic Valve: The aortic valve is normal in appearance and function. The aortic valve is tri-leaflet. There is no aortic valve regurgitation. Tricuspid Valve: The tricuspid valve is normal in appearance and function. Trivial tricuspid valve regurgitation. Pulmonic Valve: The pulmonic valve is normal in appearance and function. Trivial pulmonic valve regurgitation. Aorta: The aorta is normal. Pericardium: No pericardial effusion. (No Signature Object) Patient: SIGIFREDO BONNER Study Date: 03/14/2018 Page 2 of 2 07:39 AM [id number]
[2018-03-14] MEDS: AMITRIPTYLINE HCL 25 MG TAB PO SCH (20:48)
[2018-03-14] MEDS: LORazepam 1 MG TAB PO SCH (20:48)
[2018-03-14] MEDS: ASPIRIN EC 81 MG TAB PO SCH (20:48)
[2018-03-15] MEDS: HYDROCODONE/APAP 5/325 TAB PO PRN ×2 (03:30→18:41)
[2018-03-15] MEDS: LEVOTHYROXINE 150 MCG TAB PO SCH (06:11)
[2018-03-15] MEDS: INSULIN LISPRO 100 UNIT/ML SC SCH ×4 (07:56→21:41)
[2018-03-15] MEDS: GLIMEPIRIDE 2 MG TAB PO SCH ×2 (08:32→13:16)
[2018-03-15] MEDS: CLOPIDOGREL BISULFATE 75 MG TAB PO SCH (08:32)
[2018-03-15] MEDS: PANTOPRAZOLE SODIUM 40 MG TAB PO SCH (08:32)
[2018-03-15] MEDS: ATORVASTATIN CALCIUM 40 MG TAB PO SCH (08:32)
[2018-03-15] MEDS: buPROPion SR 100 MG TAB PO SCH (08:32)
[2018-03-15] MEDS: INSULIN GLARGINE 100 UNITS/ML UNIT SC SCH ×2 (08:33→21:36)
[2018-03-15] MEDS ORDERED: ERGOCALCIFEROL 50,000 I.UNIT CAP PO SCH (09:00)
[2018-03-15] MEDS ORDERED: ALBUMIN 25% 100 ML IV ONE (12:55)
[2018-03-15] MEDS ORDERED: FUROSEMIDE 20 MG/2 ML VIAL IVP ONE (13:30)
--- NOTE | 2018-03-15 16:59 | HOSPPROG ---
Hospitalist Progress Note Assessment/Plan: #Sepsis: due to E coli bacteremia. IV CTX #Hypotension: -Echo reassuring with normal EF #RICO: dehydration with acute infection. Normal EF cardiorenal? FeUrea <35%, c/w pre-renal. #Acute hypoxic resp failure: due to pulm edema with aggressive IV resuscitation. Normal EF. #DM2: watch sugars with RICO #CAD: h/p CABG. Trop mildly up here. c/o anginal symptoms for past month. Usually walks mile 1 mile daily, but hasn't tolerated due to "pressure and SOB" relieved with rest. Would benefit from cardiac stress once infection treated - ASA, statin #Chronic pain #Chronic thrombocytopenia: lower today with acute infection #Chronic nausea/vomiting #GIORGIO #Depression #HTN: hold BP meds with sepsis, hypotension #Hypothyroidism: LT4 #Diet: regular #DVT ppx: SCDs Disp:cont inpatient admission with sepsis. Cont IV abx, albumin Plan: -give Lasix/albumin today -cont CTX -optimize glucose management -Hold BB and Losartan currently due to low BP, restart soon. -recheck lactic acid Subjective: no cp or sob. no n/v. feels better Objective: Vital Signs Temp Pulse Resp BP Pulse Ox 36.8 C 90 13 133/69 H 97 03/15/18 14:13 03/15/18 14:13 03/15/18 14:13 03/15/18 14:13 03/15/18 14:13 Microbiology 03/13/18 18:25 Blood Panel (PCR) - Final Blood Escherichia Coli Laboratory Results 03/14/18 03:30 03/15/18 03:25 03/14/18 03/15/18 03/16/18 05:59 05:59 05:59 Intake Total 2600 1540 Output Total 650 1050 500 Balance 1950 490 -500 PT 14.3 SEC (12.0-15.0) 03/13/18 17:08 INR 1.09 (0.83-1.16) 03/13/18 17:08 - Physical Exam Constitutional: no apparent distress Eyes: PERRL Ears, Nose, Mouth, Throat: moist mucous membranes Cardiovascular: regular rate and rhythym, edema Respiratory: no respiratory distress, reduced air movement Gastrointestinal: normoactive bowel sounds, soft, non-tender abdomen Skin: warm Musculoskeletal: generalized weakness Neurologic: AAOx3 Psychiatric: interacting appropriately, not anxious, not encephalopathic Lymph, Heme, Immunologic: No petechiae ICD10 Worksheet Patient Problems: Problems Problem Status Onset Severe sepsis Acute Urinary tract infection Acute CAD - Coronary arteriosclerosis Active Diabetes mellitus type 2 Active Abdominal pain Acute Cranial nerve palsy Acute Dehydration Acute Eye pain Acute Intractable abdominal pain Acute Nausea Acute Vomiting Acute
[2018-03-15] MEDS: ASPIRIN EC 81 MG TAB PO SCH (20:03)
[2018-03-15] MEDS: LORazepam 1 MG TAB PO SCH (21:41)
[2018-03-15] MEDS: AMITRIPTYLINE HCL 25 MG TAB PO SCH (21:41)
[2018-03-16 04:27] LABS: PLATELET COUNT 79 10^3/uL (150-400)
[2018-03-16] MEDS: LEVOTHYROXINE 150 MCG TAB PO SCH (06:23)
[2018-03-16] MEDS: GLIMEPIRIDE 2 MG TAB PO SCH ×2 (08:22→12:11)
[2018-03-16] MEDS: INSULIN LISPRO 100 UNIT/ML SC SCH ×4 (08:23→22:48)
[2018-03-16] MEDS: ATORVASTATIN CALCIUM 40 MG TAB PO SCH (08:23)
[2018-03-16] MEDS: buPROPion SR 100 MG TAB PO SCH (08:23)
[2018-03-16] MEDS: CLOPIDOGREL BISULFATE 75 MG TAB PO SCH (08:23)
[2018-03-16] MEDS: PANTOPRAZOLE SODIUM 40 MG TAB PO SCH (08:23)
[2018-03-16] MEDS: INSULIN GLARGINE 100 UNITS/ML UNIT SC SCH ×2 (08:26→22:40)
--- NOTE | 2018-03-16 13:14 | ASMTCASEMG ---
Living Arrangements What is your living Answers: Alone arrangement? Who do you live with? Type Of Residence What kind of residence do Answers: House you live in? Discharge Plan Comments Coordination Status Comments Notes: Pts case discussed in tx rounds. Pt is a 72 y/o female admitted for sepsis and a UTI. Pt lives w/ her son in a mother in law suite. Pt will most likely not have any d/c needs. Pt has been observed walking safely and independently on the unit. No therapies ordered at this time. CM available for changes. Plan: Independent Date Signed: 03/16/2018 01:13 PM Electronically Signed By:STEFANY Pandey
[2018-03-16] MEDS ORDERED: BISACODYL 10 MG SUPP PR PRN (13:17)
[2018-03-16] MEDS ORDERED: LACTULOSE 20 GM/30 ML UDCUP PO PRN (13:17)
--- NOTE | 2018-03-16 13:21 | HOSPPROG ---
Hospitalist Progress Note Assessment/Plan: #Sepsis: due to E coli bacteremia. IV CTX #Hypotension: -Echo reassuring with normal EF #RICO: dehydration with acute infection. Normal EF cardiorenal? FeUrea <35%, c/w pre-renal. -Resolved #Acute hypoxic resp failure: due to pulm edema with aggressive IV resuscitation. Normal EF. #DM2: watch sugars with RICO -does not take Metformin at home #CAD: h/p CABG. Trop mildly up here. c/o anginal symptoms for past month. Usually walks mile 1 mile daily, but hasn't tolerated due to "pressure and SOB" relieved with rest. Would benefit from cardiac stress once infection treated - ASA, statin #Chronic pain #Chronic thrombocytopenia: lower today with acute infection #Chronic nausea/vomiting #GIORGIO #Depression #HTN: hold BP meds with sepsis, hypotension -Hypotension resolved -restart Metoprolol -cont holding ARB #Hypothyroidism: LT4 #Diet: regular #DVT ppx: SCDs Disp:cont inpatient admission for medical management Plan: -Lasix x 1 -CXR in a.m -restart BB, hold ARB -cont CTX -adjust insulind Subjective: feeling better. no cp or sob. glucose is elevated Objective: Vital Signs Temp Pulse Resp BP Pulse Ox 36.8 C 81 20 142/65 H 97 03/16/18 11:37 03/16/18 11:37 03/16/18 11:37 03/16/18 11:37 03/16/18 11:37 Microbiology 03/13/18 18:25 Blood Culture - Final Blood Escherichia Coli Blood Panel (PCR) - Final Escherichia Coli Laboratory Results 03/16/18 03:34 03/16/18 03:34 03/15/18 03/16/18 03/17/18 05:59 05:59 05:59 Intake Total 1540 456 Output Total 1050 2950 Balance 490 -2494 PT 14.3 SEC (12.0-15.0) 03/13/18 17:08 INR 1.09 (0.83-1.16) 03/13/18 17:08 - Physical Exam Constitutional: no apparent distress Eyes: PERRL Ears, Nose, Mouth, Throat: moist mucous membranes, hearing normal Cardiovascular: regular rate and rhythym, No edema Respiratory: no respiratory distress Gastrointestinal: normoactive bowel sounds, soft, non-tender abdomen Skin: warm Musculoskeletal: generalized weakness Neurologic: AAOx3 Psychiatric: interacting appropriately, not anxious, not encephalopathic Lymph, Heme, Immunologic: No petechiae ICD10 Worksheet Patient Problems: Problems Problem Status Onset Severe sepsis Acute Urinary tract infection Acute CAD - Coronary arteriosclerosis Active Diabetes mellitus type 2 Active Abdominal pain Acute Cranial nerve palsy Acute Dehydration Acute Eye pain Acute Intractable abdominal pain Acute Nausea Acute Vomiting Acute
[2018-03-16] MEDS: FUROSEMIDE 20 MG TAB PO ONE ×2 (16:45→16:49)
[2018-03-16] MEDS ORDERED: FUROSEMIDE 20 MG TAB PO ONE (16:45)
[2018-03-16] MEDS: POLYETHYLENE GLYCOL 3350 17 GM PKT PO PRN (17:17)
[2018-03-16] MEDS: HYDROCODONE/APAP 5/325 TAB PO PRN (22:12)
[2018-03-16] MEDS: METOPROLOL TARTRATE 25 MG TAB PO SCH (22:39)
[2018-03-16] MEDS: SENNOSIDES/DOCUSATE SODIUM TAB PO SCH (22:39)
[2018-03-16] MEDS: ASPIRIN EC 81 MG TAB PO SCH (22:39)
[2018-03-16] MEDS: LORazepam 1 MG TAB PO SCH (22:39)
[2018-03-16] MEDS: AMITRIPTYLINE HCL 25 MG TAB PO SCH (22:40)
[2018-03-17] MEDS: LEVOTHYROXINE 150 MCG TAB PO SCH (06:01)
[2018-03-17] MEDS: GLIMEPIRIDE 2 MG TAB PO SCH ×2 (09:16→12:53)
[2018-03-17] MEDS: METOPROLOL TARTRATE 25 MG TAB PO SCH ×2 (09:16→21:48)
[2018-03-17] MEDS: SENNOSIDES/DOCUSATE SODIUM TAB PO SCH ×2 (09:16→21:49)
[2018-03-17] MEDS: INSULIN GLARGINE 100 UNITS/ML UNIT SC SCH ×2 (09:16→21:49)
[2018-03-17] MEDS: INSULIN LISPRO 100 UNIT/ML SC SCH ×4 (09:16→21:49)
[2018-03-17] MEDS: CLOPIDOGREL BISULFATE 75 MG TAB PO SCH (09:17)
[2018-03-17] MEDS: buPROPion SR 100 MG TAB PO SCH (09:17)
[2018-03-17] MEDS: PANTOPRAZOLE SODIUM 40 MG TAB PO SCH (09:17)
[2018-03-17] MEDS: ATORVASTATIN CALCIUM 40 MG TAB PO SCH (09:17)
--- NOTE | 2018-03-17 12:27 | ASMTCMCOM ---
CM Note CM Note Notes: Pts case discussed in tx rounds. Pt is currently on IV ceftriaxone. Pt will most likely be switched over to orals once medically stable to d/c. Pt does not have any mobility issues and the plan will remain the same. No d/c needs at this time. CM available for changes. Plan: Independent Date Signed: 03/17/2018 12:26 PM Electronically Signed By:STEFANY Pandey
[2018-03-17] MEDS ORDERED: FUROSEMIDE 40 MG/4 ML VIAL IVP ONE (13:07)
[2018-03-17] MEDS: LORazepam 1 MG TAB PO SCH (21:48)
[2018-03-17] MEDS: ASPIRIN EC 81 MG TAB PO SCH (21:48)
[2018-03-17] MEDS: AMITRIPTYLINE HCL 25 MG TAB PO SCH (21:49)
[2018-03-18] MEDS: LEVOTHYROXINE 150 MCG TAB PO SCH (06:15)
[2018-03-18] MEDS: INSULIN GLARGINE 100 UNITS/ML UNIT SC SCH (08:20)
[2018-03-18] MEDS: INSULIN LISPRO 100 UNIT/ML SC SCH ×2 (08:20→12:55)
[2018-03-18] MEDS: GLIMEPIRIDE 2 MG TAB PO SCH ×2 (08:21→12:55)
[2018-03-18] MEDS: buPROPion SR 100 MG TAB PO SCH (08:21)
[2018-03-18] MEDS: SENNOSIDES/DOCUSATE SODIUM TAB PO SCH (08:21)
[2018-03-18] MEDS: METOPROLOL TARTRATE 25 MG TAB PO SCH (08:21)
[2018-03-18] MEDS: POLYETHYLENE GLYCOL 3350 17 GM PKT PO PRN (08:21)
[2018-03-18] MEDS: PANTOPRAZOLE SODIUM 40 MG TAB PO SCH (08:22)
[2018-03-18] MEDS: ATORVASTATIN CALCIUM 40 MG TAB PO SCH (08:22)
[2018-03-18] MEDS: CLOPIDOGREL BISULFATE 75 MG TAB PO SCH (08:22)
[2018-03-18 11:43] VITALS: BP 116/63
--- NOTE | 2018-03-18 14:44 | PDHOMEO2F ---
Home Oxygen Face to Face Home Orders: I certify that a physician or a nurse practitioner or physician's customer relations assistant has had a [id number] encounter with this patient on the date of this order due to the diagnosis listed, which relates to the primary reason the patient requires home oxygen. Alternative treatments have been tried, or considered, and deemed ineffective. It is anticipated that supplemental oxygen will result in improvement with treatment. Home oxygen qualifying diagnosis: CHF, HYPOXEMIA SpO2 on room air (%): 85 Frequency of home oxygen needed: continuous Home oxygen liters per minute: 2 Home oxygen delivery device: nasal cannula Concentrator: Yes E-tanks for mobility and back up: No I certify that, based on these findings, the home oxygen is medically necessary for this patient for the following length of time. Length of time home oxygen needed: 3 months
[2018-03-18] MEDS ORDERED: FUROSEMIDE 20 MG/2 ML VIAL IVP ONE (14:47)
--- NOTE | 2018-03-18 14:48 | PDDCSUM ---
Discharge Summary Discharge Summary: 72 yo female admitted with acute cystitis and sepsis. Abx have completed today. She became volume overload and she was diuresed. Please see below for details per problem list. She will f/u with PCP in one week. With pulm in 2-4 weeks and with Cards in 2-4 weeks. DDX: #Sepsis: due to E coli bacteremia. IV CTX now complete #Hypotension: resolved #RICO: dehydration with acute infection. Normal EF cardiorenal? FeUrea <35%, c/w pre-renal. -Resolved #Acute hypoxic resp failure: due to pulm edema with aggressive IV resuscitation. Normal EF. -she is still on supplemental O2 -Home O2 is being arranged -she will cont to be on Lasix 20mg daily #DM2: home meds, insulin #CAD: h/p CABG. - ASA, statin #Chronic pain #Chronic thrombocytopenia: lower today with acute infection #Chronic nausea/vomiting #GIORGIO #Depression #HTN: -Hold Losartan -cont Metoprolol #Hypothyroidism: LT4 Exam: NAD AAOX3 RRR CTA B S/ND/ND MED: SEE MED REC F/U: PER ABOVE TOTAL TIME SPENT ON D/C IS 35 MINS
== END 2018-03-18 17:24 | disposition home or self-care (01) | DRG 871 ==
LOC: F2W 21:50 → F3E 03-17 17:19
PROVIDERS: ADMIT Internal Medicine; ATTEND Internal Medicine
DX: A41.51 Sepsis due to Escherichia coli [E. coli] (principal); N30.90 Cystitis, unspecified without hematuria; N17.9 Acute kidney failure, unspecified; E86.0 Dehydration; J96.01 Acute respiratory failure with hypoxia; D69.6 Thrombocytopenia, unspecified; E11.9 Type 2 diabetes mellitus without complications; I48.91 Unspecified atrial fibrillation; J45.909 Unspecified asthma, uncomplicated; G47.33 Obstructive sleep apnea (adult) (pediatric); G89.29 Other chronic pain; E03.9 Hypothyroidism, unspecified; I25.10 Atherosclerotic heart disease of native coronary artery without angina pectoris; I10 Essential (primary) hypertension; Z95.5 Presence of coronary angioplasty implant and graft; Z95.1 Presence of aortocoronary bypass graft; Z79.4 Long term (current) use of insulin
CPT/HCPCS: 84484-PO; 96374; 97116-GP; 97161-GP; 97165-GO; 97530-GO; 97535-GO; G8978-GP-CI; G8978-GP-CJ; G8979-GP-CI; G8980-GP-CI; G8987-GO-CI; G8987-GO-CJ; G8988-GO-CI; G8989-GO-CI; J0696; J1644; J1815; J1940; J2270; J2405; J2550; P9047; Q9967

== ENCOUNTER → 2018-04-21 | Outpatient (CLI) | payer OTHER, MEDICARE | LOC: FIMAGING 12:35 | PROVIDERS: ATTEND Internal Medicine Pulmonary Disease | DX: J84.9 Interstitial pulmonary disease, unspecified (principal) ==

== ENCOUNTER → 2018-05-31 | Outpatient (CLI) | payer OTHER, MEDICARE | LOC: BHFA 11:00 | PROVIDERS: ATTEND Internal Medicine Cardiovascular Disease | DX: R06.09 Other forms of dyspnea (principal); I25.10 Atherosclerotic heart disease of native coronary artery without angina pectoris; E78.5 Hyperlipidemia, unspecified; I10 Essential (primary) hypertension ==

== ENCOUNTER 2018-09-19 13:21 | Day surgery (SDC) | payer OTHER, MEDICARE ==
[2018-09-19] MEDS ORDERED: ROPIVACAINE 0.2% 80 MG, EPINEPHrine 0.2 MG, morphINE 10 MG in SYRINGE 0 ML IU ONE (13:58)
[2018-09-19] MEDS ORDERED: ceFAZolin 2 GM/DEXTROSE 100 ML IV ONE (13:58)
[2018-09-19] MEDS ORDERED: LR 1,000 ML IV ONE (13:59)
[2018-09-19] MEDS ORDERED: LIDOCAINE 1% 2 ML INJ ID PRN (13:59)
[2018-09-19 14:35] LABS: PLATELET COUNT 111 10^3/uL (150-400)
--- NOTE | 2018-09-19 14:54 | PDHPUP ---
History & Physical Update H&P update statement: This history and physical update is based on an assessment of the patient which was completed after admission or registration (within 24 hours), but prior to the surgery/procedure. H&P update: H&P reviewed & patient examined, no change in patient's condition since H&P completed
[2018-09-19] MEDS ORDERED: MIDAZOLAM 2 MG/2 ML VIAL IVP ONE (14:55)
--- NOTE | 2018-09-19 14:57 | PDANEPAE ---
ANE History of Present Illness rt knee scope ANE Past Medical History - Cardiovascular History Hx Hypertension: Yes Hx Arrhythmias: No Hx Chest Pain: No Hx Coronary Artery / Peripheral Vascular Disease: Yes Hx CHF / Valvular Disease: No Hx Palpitations: No - Pulmonary History Hx COPD: No Hx Asthma/Reactive Airway Disease: No Hx Recent Upper Respiratory Infection: No Hx Oxygen in Use at Home: No Hx Sleep Apnea: Yes - Endocrine History Hx Diabetes: Yes Obesity: yes, moderate - Chronic Pain History Chronic Pain: No ANE Review of Systems Review of systems is: negative Review of Systems: - Exercise capacity METS (RN): 4 METS ANE Patient History - Allergies Allergies/Adverse Reactions: No Known Allergies Allergy (Verified 03/13/18 19:22) - Home Medications Home medications: home medication list seen and reviewed Home Medications: Clopidogrel Bisulfate [Plavix (*)] 75 mg PO DAILY 07/19/15 [Last Taken 09/05/18] LORazepam [Ativan (*)] 1 mg PO HS 07/19/15 [Last Taken 09/16/18] metFORMIN HCL [Glucophage 500 mg (*)] 500 mg PO BID 07/19/15 [Last Taken ] Ergocalciferol (Vitamin D2) [Vitamin D2] 50,000 unit PO WE 04/05/16 [Last Taken 07/13/17] Glimepiride 4 mg PO BID@08,13 04/05/16 [Last Taken 09/18/18] Insulin Glargine [Lantus 100 UNITS/ML] 30 unit SC BID 04/05/16 [Last Taken 09/18] Metoprolol Tartrate 25 mg PO BID 04/05/16 [Last Taken 09/18/18] Aspirin EC [Aspirin EC 81 mg (*)] 81 mg PO HS 07/14/17 [Last Taken 09/12/18] Amitriptyline HCl [Elavil 50 mg (*)] 25 mg PO HS 03/13/18 [Last Taken 09/18/18] Atorvastatin Calcium [Lipitor 40 mg (*)] 40 mg PO DAILY 03/13/18 [Last Taken ] Hydrocodone/Acetaminophen [[place] 7.5-325 Tablet] 1 each PO Q4H PRN 03/13/18 [ Last Taken Unknown] Levothyroxine [Synthroid 150 mcg (*)] 150 mcg PO DAILY06 03/13/18 [Last Taken ] Pantoprazole Sodium [Protonix 40mg (*)] 40 mg PO DAILY 03/13/18 [Last Taken ] buPROPion SR [Wellbutrin 100mg SR (*)] 100 mg PO DAILY 03/13/18 [Last Taken ] - NPO status NPO Since - Liquids (Date): 09/19/18 NPO Since - Liquids (Time): 10:00 NPO Since - Solids (Date): 09/18/18 NPO Since - Solids (Time): 21:30 - Anes Hx Anes Hx: no prior problems - Smoking Hx Smoking Status: Never smoked ANE Labs/Vital Signs - Labs Result Diagrams: 09/19/18 14:21 09/19/18 14:21 - Vital Signs Blood Pressure: 140/67 Heart Rate: 81 Respiratory Rate: 18 O2 Sat (%): 95 Height: 160 cm Weight: 79 kg ANE Physical Exam - Airway Neck exam: FROM Mallampati Score: Class 2 Mouth exam: normal dental/mouth exam - Pulmonary Pulmonary: no respiratory distress - Cardiovascular Cardiovascular: regular rate and rhythym - ASA Status ASA Status: III ANE Anesthesia Plan Anesthesia Plan: GA w LMA
[2018-09-19] MEDS ORDERED: fentaNYL 100 MCG/2 ML INJ ONE ×2 (15:01→16:34)
[2018-09-19] MEDS ORDERED: PROPOFOL 200 MG/20 ML VIAL ONE (15:02)
[2018-09-19] MEDS ORDERED: LIDOCAINE 2% 5 ML SDV ONE (15:03)
[2018-09-19] MEDS ORDERED: BUPIVACAINE/EPI 0.5% 30 ML SDV ONE (15:18)
[2018-09-19] MEDS ORDERED: HYDROCODONE/APAP 5/325 TAB PO PRN (15:57)
[2018-09-19] MEDS ORDERED: METOCLOPRAMIDE 10 MG/2 ML VIAL IVP PRN (15:57)
[2018-09-19] MEDS ORDERED: ACETAMINOPHEN 500 MG TAB PO PRN (15:57)
[2018-09-19] MEDS ORDERED: PROMETHAZINE HCL 25 MG/ML INJ IVP PRN (15:57)
[2018-09-19] MEDS ORDERED: LR 500 ML IV PRN (15:57)
[2018-09-19] MEDS ORDERED: oxyCODONE IR 5 MG TAB PO PRN (15:57)
[2018-09-19] MEDS ORDERED: ALBUTEROL 3 ML DEYVIAL IH PRN (15:57)
[2018-09-19] MEDS ORDERED: HYDROmorphONE/DILAUDID 2 MG/ML INJ IVP PRN (15:57)
[2018-09-19] MEDS ORDERED: NALOXONE HCL 0.4 MG/ML INJ IVP PRN (15:57)
[2018-09-19] MEDS ORDERED: ONDANSETRON 4 MG/2 ML VIAL IVP PRN (15:57)
--- NOTE | 2018-09-19 15:57 | POSTANESTH ---
Post Anesthetic Evaluation Cardiovascular Status: Normal, Stable Respiratory Status: Normal, Stable Level of Consciousness/Mental Status: Can Participate in Eval Pain Control: Adequate, Prn Tx Ordered Nausea/Vomiting Control: Adequate, Prn Tx Ordered Complications Possibly Related to Anesthesia: None Noted
[2018-09-19] MEDS: fentaNYL 100 MCG/2 ML INJ IVP PRN ×2 (16:37→17:22)
[2018-09-19] MEDS ORDERED: HYDROCODONE/APAP 5/325 TAB ONE (17:35)
[2018-09-19 18:40] VITALS: BP 133/72
--- NOTE | 2018-09-19 21:14 | GOP ---
DATE OF OPERATION: 09/19/2018 SURGEON: Denis Sanchez MD ANESTHESIA: General. PREOPERATIVE DIAGNOSIS: 1. Medial meniscus tear right knee. 2. Possible lateral meniscus tear right knee. POSTOPERATIVE DIAGNOSIS: 1. Medial meniscus tear right knee. 2. Patellofemoral chondromalacia right knee. PROCEDURE PERFORMED: 1. Right knee arthroscopy with partial medial meniscectomy. 2. Patellofemoral chondroplasty right knee. FINDINGS: INDICATIONS: This is a 72-year-old female with symptoms in her knee secondary to above diagnosis. S he has failed nonoperative treatment and is being admitted for surgical care. We have gone over risk s, benefits and limitations of procedure preoperatively. DESCRIPTION OF PROCEDURE: After an adequate general anesthetic was obtained and IV antibiotics were administered, exam under anesthesia revealed a full range of motion, Lindsay's stable. There was no varus, valgus or posterolateral laxity. The patient's right lower extremity was placed in a leg holding device with adequate padding, and was prepped and draped in the usual sterile fashion. The limb was exsanguinated with the Esmarch and to urniquet elevated to 275 mmHg pressure. A standard superolateral, anteromedial and anterolateral art hroscopic portals were established with an 11 blade. A 4 mm 32-degree arthroscope was introduced thr ough the anterolateral portal and a systemic examination of the knee was carried out. Suprapatellar pouch, medial and lateral gutters revealed mild synovitis. The patella articular surface revealed di ffuse shaggy grade 2-3 chondromalacia with a small area of grade 4 exposed bone proximally and medial ly. A chondroplasty was performed. The femoral trochlea revealed grade 1-2 softening. The ACL and PCL were normal. The lateral compartment was entered. The lateral meniscus exhibited some softening, but there was no tear present. There was a deep area of grade 3 chondromalacia, measuring 1 x 1.5 cm on the weightbe aring surface of the lateral femoral condyle with loose delaminating articular cartilage. This was d ebrided down to stable cartilage using a small shaver. There was grade 1 softening of the tibia. The medial compartment was entered. The medial meniscus exhibited a tear involving the posterior hor n and extending to the root without a root detachment. This was unrepairable. A partial medial meni scectomy was carried out, resecting these back to a stable 2 to 3 mm rim. The final rim was contoure d and balanced with a small shaver. There was diffuse shaggy grade 2-3 chondromalacia over the majority of the majority of the weightbear ing surface of the medial femoral condyle which did require a minimal chondroplasty as well. The tibial plateau revealed grade 1 softening. The 70-degree scope was introduced posterolaterally which was normal. The 70-degree scope was introd uced posteromedially. This confirmed that the meniscal root was not completely detached. There was no further pathology posteriorly. The knee was irrigated to clear. The portals were closed using interrupted 3-0 nylon suture. 30 cc of 0.50% Marcaine with epinephrine was injected intra-articularly. A sterile dressing was applied followed by an Brian wrap and the tourniquet was deflated after 20 minut es tourniquet time. There were no complications. The patient tolerated the procedure well and returned to the recovery r oom in stable condition. /[id number]/MODL
== END 2018-09-19 18:41 | disposition home or self-care (01) ==
LOC: FSGY 13:21
PROVIDERS: ATTEND Orthopaedic Surgery Sports Medicine
PROC: 0SBC4ZZ Excision of Right Knee Joint, Percutaneous Endoscopic Approach (ICD-10-PCS; principal; 2018-09-19 15:00)
PROC: 0MQN4ZZ Repair Right Knee Bursa and Ligament, Percutaneous Endoscopic Approach (ICD-10-PCS; principal; 2018-09-19 15:00)
DX: M23.321 Other meniscus derangements, posterior horn of medial meniscus, right knee (principal); M22.41 Chondromalacia patellae, right knee; G47.33 Obstructive sleep apnea (adult) (pediatric); J84.9 Interstitial pulmonary disease, unspecified; I25.10 Atherosclerotic heart disease of native coronary artery without angina pectoris; Z95.1 Presence of aortocoronary bypass graft; K21.9 Gastro-esophageal reflux disease without esophagitis; Z99.81 Dependence on supplemental oxygen
CPT/HCPCS: J0171; J0690; J2250; J2270; J2704; J2795; J3010